=== PATIENT | female | born 1955 | race Caucasian/White ===

== ENCOUNTER → 2020-05-26 15:56 | Outpatient (CLI) | payer OTHER, SELFPAY ==
--- NOTE | 2020-05-26 | DI.MG.S_ITS ---
BILATERAL DIGITAL SCREENING MAMMOGRAM 3D/2D WITH CAD: 05/26/2020 CLINICAL: Routine screening. Family history of breast cancer. Comparison is made to exams dated: 05/09/2017 mammogram - [facility] and 03/07/2019 mammogram - outside location. There are scattered fibroglandular elements in both breasts. Current study was also evaluated with a Computer Aided Detection (CAD) system. There is a biopsy clip in the left breast. No significant masses, calcifications, or other findings are seen in either breast. There has been no significant interval change. IMPRESSION: NEGATIVE There is no mammographic evidence of malignancy. A 1 year screening mammogram is recommended. This exam was interpreted at Station ID: [id number]. NOTE: For mammograms, a report in lay terms will be sent to the patient. Approximately 15% of breast malignancies will not be visualized mammographically. In the management of a palpable breast mass, a negative mammogram must not discourage biopsy of a clinically suspicious lesion. Electronically Signed By: Dane chao/tiago:05/26/2020 16:27:24 letter sent: Normal Exam ACR BI-RADS Category 1: Negative [id number]
== END ==
PROVIDERS: Family Provider Internal Medicine; PCP Physician Assistant; Referring Provider Physician Assistant; Visit Provider Physician Assistant
DX: Z12.31 Encounter for screening mammogram for malignant neoplasm of breast (principal); Z80.3 Family history of malignant neoplasm of breast
CPT/HCPCS: 77063; 77067

== ENCOUNTER → 2021-10-29 14:33 | Outpatient (CLI) | payer MEDICARE, OTHER, SELFPAY ==
--- NOTE | 2021-10-29 | DI.MG.S_ITS ---
BILATERAL DIGITAL SCREENING MAMMOGRAM 3D/2D WITH CAD: 10/29/2021 CLINICAL: Routine screening. Family history of breast cancer. Comparison is made to exams dated: 05/26/2020 mammogram - [facility], 03/07/2019 mammogram - outside [facility], and 05/09/2017 mammogram - [facility]. There are scattered fibroglandular elements in both breasts. Current study was also evaluated with a Computer Aided Detection (CAD) system. There is a possible developing asymmetry with an indistinct margin in the right breast at 6 o'clock anterior depth. No other significant masses, calcifications, or other findings are seen in either breast. IMPRESSION: INCOMPLETE: NEEDS ADDITIONAL IMAGING EVALUATION The possible developing asymmetry in the right breast is indeterminate. Additional views with possible ultrasound are recommended. This exam was interpreted at Station ID: [id number]. NOTE: For mammograms, a report in lay terms will be sent to the patient. Approximately 15% of breast malignancies will not be visualized mammographically. In the management of a palpable breast mass, a negative mammogram must not discourage biopsy of a clinically suspicious lesion. Electronically Signed By: Huseyin Downey M.D., jr/tiago:10/29/2021 15:30:05 letter sent: Additional Imaging Needed ACR BI-RADS Category 0: Incomplete [id number]
== END ==
PROVIDERS: Family Provider Internal Medicine; PCP Physician Assistant; Referring Provider Physician Assistant; Visit Provider Physician Assistant
DX: Z12.31 Encounter for screening mammogram for malignant neoplasm of breast (principal); Z80.3 Family history of malignant neoplasm of breast
CPT/HCPCS: 77063; 77067

== ENCOUNTER → 2021-12-09 09:22 | Outpatient (CLI) | payer MEDICARE, OTHER, SELFPAY ==
--- NOTE | 2021-12-09 | DI.US.S_ITS ---
ULTRASOUND OF RIGHT BREAST AND AXILLA: 12/09/2021 CLINICAL: Patient returns today to evaluate a focal asymmetry in the right breast. Comparison is made to exams dated: 12/09/2021 mammogram, 10/29/2021 mammogram, and 05/26/2020 mammogram - [facility]. Color flow ultrasound of the right breast axilla was performed. Woodward scale images of the real-time examination were reviewed. There is a 0.5 cm x 0.6 cm x 0.4 cm oval mass in the right breast at 9 o'clock middle depth 5 cm from the nipple. This oval mass is hypoechoic with an echogenic boundary and internal echoes. This correlates with mammography findings. Color flow imaging demonstrates that there is no vascularity present. No significant abnormalities were seen sonographically in the right axilla. IMPRESSION: SUSPICIOUS OF MALIGNANCY The 0.5 cm x 0.6 cm x 0.4 cm oval mass in the right breast is suspicious of malignancy. An ultrasound guided biopsy is recommended. Findings and recommendations were discussed with the patient by Dr. Pineda during today's examination. This exam was interpreted at Station ID: [id number]. Electronically Signed By: Chino Clemens M.D. aty/:12/09/2021 10:46:00 letter sent: Biopsy Required Ultrasound BI-RADS: 4 Suspicious for malignancy
--- NOTE | 2021-12-09 | DI.MG.S_ITS ---
UNILATERAL RIGHT DIGITAL DIAGNOSTIC MAMMOGRAM 3D/2D WITH ADDITIONAL VIEWS: 12/09/2021 CLINICAL: Additional evaluation requested from prior study. Comparison is made to exams dated: 10/29/2021 mammogram, 05/26/2020 mammogram - [facility], and 03/07/2019 mammogram - outside location. There are scattered fibroglandular elements in right breast. Redemonstration of previously described 0.6 cm oval equal density focal asymmetry with an obscured margin in the right breast at 8 o'clock anterior depth. This is seen in additional views. No other significant masses or calcifications are seen in the breast. IMPRESSION: INCOMPLETE: NEEDS ADDITIONAL IMAGING EVALUATION The 0.6 cm oval equal density focal asymmetry in the right breast resembles a cyst or a lymph node and is indeterminate. An ultrasound is recommended for further evaluation and is scheduled to immediately follow this examination. Based on the Tyrer Cuzick model (a risk assessment model) the patient's lifetime risk is 4.6% and her 10 year risk is 2.3%. According to the ACR, ACS, and NCCN guidelines, an annual breast MRI exam along with mammogram is recommended if the patient's lifetime risk is 20% or greater. This exam was interpreted at Station ID: [id number]. NOTE: For mammograms, a report in lay terms will be sent to the patient. Approximately 15% of breast malignancies will not be visualized mammographically. In the management of a palpable breast mass, a negative mammogram must not discourage biopsy of a clinically suspicious lesion. Electronically Signed By: Chino Clemens M.D. aty/:12/09/2021 09:51:41 ACR BI-RADS Category 0: Incomplete [id number]
== END ==
PROVIDERS: Family Provider Internal Medicine; PCP Physician Assistant; Referring Provider Physician Assistant; Visit Provider Physician Assistant
DX: R92.8 Other abnormal and inconclusive findings on diagnostic imaging of breast (principal); N63.15 Unspecified lump in the right breast, overlapping quadrants
CPT/HCPCS: 76642; 77065; G0279

== ENCOUNTER → 2021-12-21 14:49 | Outpatient (CLI) | payer MEDICARE, OTHER, SELFPAY ==
--- NOTE | 2021-12-21 | PATH_ITS ---
[facility] Accession Number: [id number] . 01 Material submitted: . breast - RIGHT BREAST MASS 9:00, 5 CMFN . 01 Clinical history: . ABNORMAL DIAG IMAGING RIGHT BREAST . 01 Diagnosis: Right Breast Mass, 9 o'clock, 5 cm From Nipple, Needle Core Biopsy: Lobular eqzcrblx-ec-uwgy (LCIS) in multiple (approximately 5 of 12) tissue fragments. No invasive tumor identified. Please see comment. [facility] [place]/30/2021 0941 Local . 01 Comment: The majority of the lesion has histologic features of classic LCIS. 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 . As part of routine quality improvement specialist, this case was also reviewed by Dr. Monte, who agrees with the interpretation. . Results discussed with Dr. Childs on 12-28-21 at approximately 12:05 p.m. . 01 Electronically signed: . Sherice Nieto MD, Pathologist NPI- [id number] . 01 Gross description: . Received in formalin, labeled with the patient's name and right breast 9 o'clock, and consists of multiple yellow soft tissue fragments admixed with hemorrhagic material ranging from 0.1 cm to 1.2 cm in greatest dimension. The specimen is inked green and submitted entirely in cassettes A1-A3. Specimen was removed on 12-21-21 at approximately 1600, cold ischemic time cannot be calculated. Total fixation time is approximately 28 hours. ([id number]) /[place]a 12/23/2021 0219 Local . 01 Microscopic: . Blocks A1 and A2: p63: Positive in regions of interest. Myosin (SMMS-1): Positive in regions of interest. . The presence of myoepithelial markers p63 and myosin mitigates against an interpretation of invasive carcinoma. . A1 and A2: E-cadherin:Absent in regions of interest, consistent with lobular differentiation. . Deparaffinized sections of formalin-fixed tissue (along with appropriate positive and negative controls) are incubated with the following antibody(s). Using the automated [place] stainer, tissue is incubated with the designated antibody which is then localized by a non-biotin, dual polymer detection system. The controls are reviewed for appropriate reactivity and found to be adequate. Results on the target cell population are indicated below: . Some of the immunohistochemistry stains reported below were developed and their performance characteristics determined by [employer] They have not been cleared or approved by the U.S. Food and Drug Administration, although such approval is not required for analyte-specific reagents of this type. . 01 Pathologist provided ICD-10: N63.10 . 01 CPT . X98398, G04248, A58958, 311631 Specimen Comment: A courtesy copy of this report has been sent to [phone] Performed at: 01 [facility] [address] [place] [address], [place], [place] [id number] MD Frantz Jones MD Phone: [phone]
--- NOTE | 2021-12-21 14:52 | DI.US.S_ITS ---
ULTRASOUND GUIDED BIOPSY RIGHT BREAST USING VACUUM DEVICE WITH MARKING DEVICE INSERTED AND POST DIGITAL MAMMOGRAPHIC IMAGIN12/21/2021 CLINICAL: Right breast mass. PATIENT CONSENT: Risks (minor bleeding, infection, vasovagal reaction and repeat procedure), benefits and alternatives were explained to the patient and written informed consent was obtained. Correlation is made to exams dated: 12/09/2021 ultrasound, 12/09/2021 mammogram, 10/29/2021 mammogram, 05/26/2020 mammogram - [facility], 03/07/2019 mammogram - outside [facility], and 05/09/2017 mammogram - [facility]. An ultrasound guided biopsy using real-time ultrasound was performed for the oval mass located in the right breast at 9 o'clock middle depth. The skin was prepped in the usual manner. Local anesthetic was administered to the access site. A skin nabeel was made in the breast. The abnormality was approached from the lateral aspect. A 13 gauge biopsy needle was placed adjacent to the abnormality under ultrasound guidance. Once the needle was documented to be in the correct location, four specimens were obtained using the Mammotome biopsy system. A Secure Yonis Celero biopsy clip was inserted into the biopsy cavity. A skin closure strip was applied to the access site. Post procedure digital mammographic imaging demonstrates the location device at the targeted area. The specimens were sent to the laboratory for pathological analysis. IMPRESSION: ULTRASOUND GUIDED BIOPSY HIGH RISK BENIGN Ultrasound guided biopsy of the mass in the right breast at 9 o'clock middle depth was successful. 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 Pathology results are concordant with imaging findings. A surgical/oncologic consultation is recommended. Results and recommendations will be communicated to the ordering provider's office. This exam was interpreted at Station ID: [id number]. Lexy Hernandez M.D. [facility],krg/:12/30/2021 15:58:47
--- NOTE | 2021-12-21 14:54 | DI.MG.S_ITS ---
UNILATERAL RIGHT DIGITAL DIAGNOSTIC MAMMOGRAM 3D/2D POST-EXCISIONAL BIOPSY: 12/21/2021 CLINICAL: Post clip. Comparison is made to exams dated: 12/09/2021 mammogram, 10/29/2021 mammogram, and 05/26/2020 mammogram - [facility]. There are scattered fibroglandular elements in right breast. There is a marker clip in the appropriate position in the right breast at 9 o'clock anterior depth. This marker clip placement is at the biopsy site. IMPRESSION: POST PROCEDURE MAMMOGRAM FOR MARKER PLACEMENT There was a successful marker clip placement in the right breast anterior depth. Based on the Tyrer Cuzick model (a risk assessment model) the patient's lifetime risk is 4.6% and her 10 year risk is 2.3%. According to the ACR, ACS, and NCCN guidelines, an annual breast MRI exam along with mammogram is recommended if the patient's lifetime risk is 20% or greater. This exam was interpreted at Station ID: [id number]. NOTE: For mammograms, a report in lay terms will be sent to the patient. Approximately 15% of breast malignancies will not be visualized mammographically. In the management of a palpable breast mass, a negative mammogram must not discourage biopsy of a clinically suspicious lesion. Electronically Signed By: Lexy zamora/tiago:12/21/2021 16:30:59 ACR BI-RADS Category Post-procedure mammogram for marker placement
== END ==
PROVIDERS: Family Provider Internal Medicine; PCP Physician Assistant; Referring Provider Physician Assistant; Visit Provider Physician Assistant
DX: D05.01 Lobular carcinoma in situ of right breast (principal)
CPT/HCPCS: 19083; 77065

== ENCOUNTER 2024-07-01 12:42 | Emergency (ER) | payer MEDICARE, OTHER, SELFPAY ==
[2024-07-01] VITALS (37 sets, daily range): BP systolic 85–214; BP diastolic 50–99; PULSE 100–132; RESP 12–71; TEMP 37.7; O2SAT 88–97; BMI 27.4
[2024-07-01] MEDS: SODIUM CHLORIDE 0.9% 1,000 ML 1000 ML IV ×2 (13:49→21:40)
[2024-07-01] MEDS: ONDANSETRON 4 MG/2 ML INJ IV (14:03)
[2024-07-01 14:10] LABS: Hematocrit 39.7 % (36-46); Hemoglobin 13.1 g/dL (12.0-16.0); Mean Corpuscular HGB Conc 32.9 % (30-36); Mean Corpuscular Hemoglobin 29.5 PG (26-34); Mean Corpuscular Volume 89.7 fL (80-100); Platelet Count 224 X10^3/uL (150-400); Red Blood Cell Count 4.43 X10^6/uL (4.0-5.2); Red Cell Distribution Width 14.9 % (11.6-14.8)
[2024-07-01 14:13] LABS: Alanine Aminotransferase 72 IU/L (<35); Albumin 3.8 g/dL (3.5-5.0); Albumin Globulin Ratio 1.1 (1.0-2.8); Alkaline Phosphatase 197 U/L (38-126); Aspartate Aminotransferase 80 IU/L (14-36); BUN Creatinine Ratio 13.6 (6-22); Bilirubin Total 1.8 mg/dL (0.2-1.3); Blood Urea Nitrogen 58 mg/dL (7-17); Calcium 8.8 mg/dL (8.4-10.2); Carbon Dioxide 21 mmol/L (22-32); Chloride 97 mmol/L (98-107); Estimated Glomerular Filt Rate 11 mL/min (>60); Globulin 3.5 g/dL (1.7-4.1); Glucose 107 mg/dL (80-110); HEMOLYSIS < 15 (0-50); Potassium 4.1 mmol/L (3.4-5.1); Sodium 134 mmol/L (137-145); Total Protein 7.3 g/dL (6.3-8.2)
--- NOTE | 2024-07-01 14:16 | ED.CALLS ---
Critical lab called WBC 30.4
[2024-07-01 14:17] LABS: Add Manual Diff / Slide Review YES; White Blood Cell Count 30.4 X10^3/uL (4.5-11.0)
[2024-07-01 14:23] LABS: Anisocytosis 1+; Neutrophils Absolute Manual 28880 /uL (3000-5900); Total Cells Counted 100
[2024-07-01 14:46] LABS: Creatine Kinase 104 U/L (30-135); Lactate (Lactic Acid) 3.2 mmol/L (0.7-2.1)
--- NOTE | 2024-07-01 15:06 | EKG_ITS ---
[address] [address] Test Date: 2024-07-01 Pat Name: Krista Arce Department: Room: Gender: Female Measurement Operator: KOKI : 1955 Requested By: Order Number: [id number] Reading MD: Bismark Baer MD Measurements Intervals [place] Rate: 103 P: 16 OH: 134 QRS: 17 QRSD: 128 T: -16 QT: 372 QTc: 487 Interpretive Statements Sinus tachycardia Right bundle branch block T wave abnormality, consider inferior ischemia NO PRIOR TRACING Electronically Signed On 07-01-2024 16:57:23 PST by Bismark Baer MD
--- NOTE | 2024-07-01 15:08 | PC.NURSE ---
Dr Kelley notified of trop of 0.190 and WBC of 30. No new orders.
--- NOTE | 2024-07-01 15:28 | DI.CT.S_ITS ---
PROCEDURE: CT HEAD/BRAIN WO CON INDICATIONS: elevated wbc, new renal failure, new elevated trop TECHNIQUE: Noncontrast 4.5 mm thick angled axial sections acquired from the foramen magnum to the vertex, with coronal and sagittal reformats. For radiation dose reduction, the following was used: automated exposure control, adjustment of mA and/or kV according to patient size. COMPARISON: None. FINDINGS: Image quality: Diagnostic. CSF spaces: Basal cisterns are patent. No extra-axial fluid collections. The ventricles are symmetric in size and shape. Brain: No intracranial bleeds or masses. There is cerebral volume loss for age, with resultant ventricular and sulcal prominence. There are periventricular and deep white matter chronic small vessel ischemic changes. There is intracranial internal carotid artery atherosclerosis. Skull and face: Calvarium and visualized facial bones appear intact, without suspicious lesions. Sinuses: Visualized sinuses and mastoids are clear. IMPRESSION: 1. No acute intracranial process. 2. Mild atrophy and chronic microvascular ischemic changes. Dictated by: Meenu Gordon M.D. on 07/01/2024 at 15:54 Approved by: Meenu Gordon M.D. on 07/01/2024 at 15:54
--- NOTE | 2024-07-01 15:28 | DI.CT.S_ITS ---
PROCEDURE: CT CHEST ABD PEL WO CON INDICATIONS: elevated wbc, new renal failure, new elevated trop TECHNIQUE: After the administration of oral contrast, 5 mm thick sections acquired from the lung apices to the symphysis pubis. 5 mm thick coronal and sagittal reformats acquired, with additional 7 mm coronal MIP reformats through the lungs. For radiation dose reduction, the following was used: automated exposure control, adjustment of mA and/or kV according to patient size. COMPARISON: None. FINDINGS: Image quality: Diagnostic. CHEST: Lower Neck: No enlarged lymph nodes. Thyroid: No thyroid nodules which require sonographic follow up, per consensus guidelines. Axillae: No enlarged lymph nodes. Chest Wall: Unremarkable. Bones: Unremarkable. Lungs and Pleura: Streaky opacities are present bilaterally most notable in the left base without gross consolidation. Heart: Heart size is normal. No pericardial effusion. Thoracic Vessels: The aorta and pulmonary arteries demonstrate normal size. Mediastinum and Davida: No enlarged lymph nodes. Calcified nodes are present. Esophagus: No wall thickening. Mild hiatal hernia. ABDOMEN: Liver: No solid mass. Steatosis. Gallbladder: No radiopaque gallstones or wall thickening. Biliary ducts: No biliary dilation. Pancreas: No ductal dilation. Spleen: Size is within normal limits. Adrenal Glands: No adrenal nodules. Kidneys and Ureters: Mild left hydronephrosis and proximal most hydroureter. There is a 6 mm proximal ureteral calcification, Hounsfield units 953. Stomach and Bowel: Normal colonic caliber, without significant wall thickening. Minimal colonic diverticula are present. Peritoneum: No abnormal intraperitoneal fluid. No free air. Ventral Wall: No hernia. Abdominal Nodes: No retroperitoneal or mesenteric adenopathy by size criteria. Vessels: Aorta and inferior vena cava are normal in size. PELVIS: Pelvic Organs: Uterus is lobulated in mildly prominent for age. Bladder: Unremarkable. Pelvic Nodes: No enlarged lymph nodes. Miscellaneous: No inguinal hernias are seen. Bones: No aggressive osseous abnormality. IMPRESSION: Left hydronephrosis and proximal hydroureter secondary to 6 mm ureteral proximal stone. Diverticulosis. Mild lobulated appearance of the uterus. While this could represent fibroids, other etiologies cannot be excluded. Ultrasound is recommended on a nonemergent basis for further evaluation. Dictated by: Meenu Gordon M.D. on 07/01/2024 at 15:54 Approved by: Meenu Gordon M.D. on 07/01/2024 at 15:57
[2024-07-01 15:30] LABS: Procalcitonin 126 ng/mL (<0.5)
--- NOTE | 2024-07-01 15:32 | ED_ITS ---
HPI - Nausea/Vomiting/Diarrhea <Kleber Kelley MD - Last Filed: 07/02/24 21:48> General Chief complaint: Nausea/Vomiting/Diarrhea Stated complaint: V/D, dizzy, flu like symptoms, sent by [facility] Time Seen by Provider: 07/01/24 14:20 Source: patient and family Mode of arrival: Wheelchair History of Present Illness HPI Narrative: 68-year-old female with history of prior small-bowel obstruction, complains of nontraumatic left flank pain for the last couple of days, also loose stools, nausea without emesis but decreased oral intake. Denies painful or frequent urination. History of sarcoma left buttock. No fevers or chills. No painful urination. No history of kidney stones recalled. She denies chest pain, shortness of breath, cough. Related Data Home Medications Medication Instructions Recorded Confirmed Ranitidine Hydrochloride ##0 03/24/12 07/01/24 (RANITIDINE) diazepam 5 mg tablet 2.5 - 10 mg PO Q4H PRN muscle spasm 07/01/24 07/01/24 ezetimibe 10 mg tablet mg PO DAILY 07/01/24 07/01/24 losartan 100 mg tablet 100 mg PO DAILY 07/01/24 07/01/24 Previous Rx's Medication Instructions Recorded albuterol sulfate 90 mcg/actuation 0 INH Q4-6H #1 unit 03/24/12 aerosol inhaler (Proventil HFA) albuterol sulfate 1.25 mg/3 mL 1.25 mg (3 mL) inhalation QID PRN 05/13/18 solution for nebulization bronchospasm #90 mL Allergies Allergy/AdvReac Type Severity Reaction Status Date / Time No Known Drug Allergies Allergy Verified 07/01/24 15:21 Patient History <Kleber Kelley MD - Last Filed: 07/02/24 21:48> Social History Smoking Status: Former smoker Smoking Status: Former smoker Exam <Kleber Kelley MD - Last Filed: 07/02/24 21:48> Narrative Exam Narrative: GENERAL: Well-developed patient, in mild distress. HEAD: Atraumatic. Normocephalic. EYES: Pupils equal round and reactive. Extraocular motions intact. No scleral icterus. No injection or drainage. ENT: Nose without bleeding, purulent drainage. Throat without erythema, tonsillar hypertrophy or exudate. Airway patent. NECK: Trachea midline. Non tender CARDIOVASCULAR: Regular rate and rhythm without murmurs, gallops, or rubs. RESPIRATORY: Clear to auscultation. Breath sounds equal bilaterally. No wheezes, rales, or rhonchi. GASTROINTESTINAL: Abdomen soft, non-tender, nondistended. EXTREMITIES: No edema or joint tenderness. BACK: Nontender without deformity or crepitance. No flank tenderness. NEURO: AOx3. Motor functions grossly nonfocal SKIN: No rash or erythema of visible areas Initial Vital Signs Initial Vital Signs: Vital Signs Temperature 99.8 F H 07/01/24 13:23 Pulse Rate 101 H 07/01/24 13:23 Respiratory Rate 18 07/01/24 13:23 Blood Pressure 116/62 07/01/24 13:23 Pulse Oximetry 95 07/01/24 13:23 Oxygen Delivery Method Room Air 07/01/24 13:23 <Lana Hernandes, DO - Last Filed: 07/02/24 06:14> Initial Vital Signs Initial Vital Signs: Vital Signs Temperature 99.8 F H 07/01/24 13:23 Pulse Rate 101 H 07/01/24 13:23 Respiratory Rate 18 07/01/24 13:23 Blood Pressure 116/62 07/01/24 13:23 Pulse Oximetry 95 07/01/24 13:23 Oxygen Delivery Method Room Air 07/01/24 13:23 Procedures <Lana Hernandes, DO - Last Filed: 07/02/24 06:14> Central Line Placement Right IJ: Patient Placed on Monitor/Pulse Ox: Yes MD Prep: mask, gown and gloves Central Line Prep: Chlorhexidine scrub and sterile drapes applied Central Line Lumen Inserted: triple Post Procedure: good blood return, all ports aspirated, flushed, capped, sterile dressing applied and line stabilization device Post Procedure X-Ray: tip of catheter in good position and no pneumothorax seen Patient Tolerated Procedure: Well and No complications Intubation sedative: Ketamine Mg Given: 150 paralytic: Rocuronium Mg Given: 46 Assist Device Used: other (glide scope) ET Tube Size: 7.5 Tube Secured Depth (cm): 23 Tube Secured Location: lips Tube Placement Confirmation: Visualized tube passing through cords, Equal breath sounds bilaterally, No breath sounds over epigastrium, Confirmation by capnometry and Chest Xray Patient Tolerated Procedure: Well Course <Kleber Kelley MD - Last Filed: 07/02/24 21:48> Orders Ordered: Discontinued Medications Albuterol (Albuterol 2.5 Mg/3 Ml Neb (Adult)) 2.5 mg INH NOW ONE Stop: 07/01/24 20:34 Last Admin: 07/01/24 21:47 Dose: 2.5 mg Documented By: ERIK Chlorhexidine Gluconate (Chlorhexidine Gluconate 15 Ml Cup) 15 ml PO Q6HR PJ Furosemide (Furosemide 40 Mg/4 Ml Vial) 40 mg IV NOW ONE Stop: 07/01/24 22:05 Last Admin: 07/01/24 22:25 Dose: 40 mg Documented By: LORELEI Heparin Sodium (Porcine) (Heparin 5,000 Unit/Ml Vial) 4,500 unit 60 unit/kg (4500 unit) IV NOW ONE Stop: 07/01/24 17:25 Last Admin: 07/01/24 17:41 Dose: Not Given Documented By: Heparin Sodium (Porcine) (Heparin 5,000 Unit/Ml Vial) 6,000 unit 80 unit/kg (6000 unit) IV NOW ONE Stop: 07/01/24 20:07 Last Admin: 07/01/24 20:23 Dose: 6,000 unit Documented By: Sodium Chloride (Normal Saline 0.9%) 1,000 mls @ 1,000 mls/hr IV BOLUS ONE Stop: 07/01/24 14:45 Last Infusion: 07/01/24 14:50 Dose: Infused Documented By: Admin: 07/01/24 13:49 Dose: 1,000 mls/hr Documented By: Sodium Chloride (Normal Saline 0.9%) 1,000 mls @ 1,000 mls/hr IV BOLUS ONE Stop: 07/01/24 18:14 Last Infusion: 07/02/24 02:15 Dose: 0 mls/hr Documented By: Infusion: 07/02/24 01:00 Dose: 250 mls/hr Documented By: Infusion: 07/01/24 21:40 Dose: 0 mls/hr Documented By: Admin: 07/01/24 21:40 Dose: 1,000 mls/hr Documented By: Ceftriaxone Sodium 1,000 mg/ (Sodium Chloride) 100 mls @ 200 mls/hr IV NOW ONE Stop: 07/01/24 17:16 Last Infusion: 07/01/24 18:33 Dose: Infused Documented By: Admin: 07/01/24 17:34 Dose: 200 mls/hr Documented By: Heparin Sodium/Dextrose (Heparin Drip) 25,000 unit in 500 mls @ 18.507 mls/hr IV CONT PJ; Protocol Last Titration: 07/02/24 00:00 Dose: Infused Documented By: JODI Co-signed By: LORELEI Titration: 07/01/24 22:59 Dose: 0 units/kg/hr, 0 mls/hr Documented By: LORELEI Co-signed By: JODI Admin: 07/01/24 20:25 Dose: 12 units/kg/hr, 18.507 mls/hr Documented By: Co-signed By: LORELEI Admin: 07/01/24 17:41 Dose: Not Given Documented By: Heparin Sodium/Dextrose (Heparin Drip) 25,000 unit in 500 mls @ 27.76 mls/hr IV CONT PJ; Protocol Last Admin: 07/01/24 21:46 Dose: Not Given Documented By: LORELEI Piperacillin Sod/Tazobactam (Sod 4.5 gm/ Sodium Chloride) 100 mls @ 200 mls/hr IV NOW ONE Stop: 07/01/24 20:07 Last Infusion: 07/01/24 22:10 Dose: Infused Documented By: Admin: 07/01/24 20:24 Dose: 200 mls/hr Documented By: Sodium Chloride (Normal Saline 0.9%) 1,000 mls @ 1,000 mls/hr IV BOLUS ONE Stop: 07/01/24 21:05 Last Admin: 07/01/24 23:57 Dose: Not Given Documented By: LORELEI NOREPINEPHRINE BITARTRATE/D5W (Levophed) 4 mg in 250 mls @ 28.917 mls/hr IV TITRATE PJ; Protocol Last Titration: 07/02/24 02:15 Dose: 0 mcg/kg/min, 0 mls/hr Documented By: Titration: 07/02/24 01:35 Dose: 0.15 mcg/kg/min, 43.375 mls/hr Documented By: Titration: 07/02/24 01:11 Dose: 0.1 mcg/kg/min, 28.917 mls/hr Documented By: Titration: 07/01/24 23:50 Dose: 0 mcg/kg/min, 0 mls/hr Documented By: Titration: 07/01/24 23:35 Dose: 0.1 mcg/kg/min, 28.917 mls/hr Documented By: Titration: 07/01/24 23:07 Dose: 0.15 mcg/kg/min, 43.375 mls/hr Documented By: Admin: 07/01/24 22:57 Dose: 0.1 mcg/kg/min, 28.917 mls/hr Documented By: LORELEI Sodium Chloride (Normal Saline 0.9%) 2,313.33 mls @ 771.11 mls/hr 30 ml/kg infuse over 3 hr (2313.33 ml) IV NOW ONE Stop: 07/02/24 02:11 Last Infusion: 07/02/24 02:10 Dose: Infused Documented By: Admin: 07/01/24 23:51 Dose: 771.11 mls/hr Documented By: LORELEI Propofol (Diprivan) 1,000 mg in 100 mls @ 2.313 mls/hr IV TITRATE PJ; Protocol Last Titration: 07/02/24 02:15 Dose: 0 mcg/kg/min, 0 mls/hr Documented By: Titration: 07/02/24 01:11 Dose: 25 mcg/kg/min, 11.567 mls/hr Documented By: Titration: 07/02/24 00:35 Dose: 11.5 mcg/kg/min, 5.321 mls/hr Documented By: Admin: 07/01/24 23:51 Dose: 5 mcg/kg/min, 2.313 mls/hr Documented By: LORELEI Fentanyl 1,000 mcg/ Dextrose 250 mls @ 13.494 mls/hr IV TITRATE PJ; Protocol Last Admin: 07/02/24 02:35 Dose: Not Given Documented By: LORELEI Piperacillin Sod/Tazobactam (Sod 3.375 gm/ Sodium Chloride) 100 mls @ 25 mls/hr IV Q8H PJ Last Infusion: 07/02/24 02:15 Dose: 0 mls/hr Documented By: Admin: 07/02/24 01:54 Dose: 25 mls/hr Documented By: LORELEI Piperacillin Sod/Tazobactam (Sod 3.375 gm/ Sodium Chloride) 100 mls @ 25 mls/hr IV Q12H PJ Iopamidol (Iopamidol 30 Ml Vial) 5 ml INTRA-CHASE NOW ONE Stop: 07/02/24 00:56 Last Admin: 07/02/24 00:56 Dose: 5 ml Documented By: GAMAL Ketamine HCl (Ketamine 500 Mg/5 Ml Inj) 150 mg IV NOW ONE Stop: 07/01/24 22:43 Last Admin: 07/01/24 22:57 Dose: 150 mg Documented By: LORELEI Ondansetron HCl (Ondansetron 4 Mg/2 Ml Inj) 4 mg IV NOW ONE Stop: 07/01/24 13:47 Last Admin: 07/01/24 14:03 Dose: 4 mg Documented By: Rocuronium Elfrida (Rocuronium 50 Mg/5 Ml Inj) 46 mg 0.6 mg/kg (46 mg) IV NOW ONE Stop: 07/01/24 22:43 Last Admin: 07/01/24 22:58 Dose: 46 mg Documented By: LORELEI Vital Signs Vital signs: Vital Signs - 8 hr 07/01/24 22:18 07/01/24 22:18 07/01/24 22:25 Pulse Rate 119 H Respiratory Rate 64 H Blood Pressure 92/60 92/60 Pulse Oximetry 94 Fraction of Inspired Oxygen 07/01/24 22:30 07/01/24 22:30 07/01/24 22:36 Pulse Rate 119 H 118 H Respiratory Rate 33 H 34 H Blood Pressure 89/61 L Pulse Oximetry 92 93 Fraction of Inspired Oxygen 07/01/24 22:36 07/01/24 22:48 07/01/24 22:48 Pulse Rate 116 H Respiratory Rate 30 H Blood Pressure 85/50 L 86/53 L Pulse Oximetry 92 Fraction of Inspired Oxygen 07/01/24 22:53 07/01/24 22:53 07/01/24 22:53 Pulse Rate 112 H 116 H Respiratory Rate 16 29 H Blood Pressure 88/50 L Pulse Oximetry 92 Fraction of Inspired Oxygen 07/01/24 23:00 07/01/24 23:00 07/01/24 23:30 Pulse Rate 100 H 125 H Respiratory Rate 16 16 Blood Pressure 93/57 L Pulse Oximetry 97 95 Fraction of Inspired Oxygen 07/01/24 23:30 07/01/24 23:40 07/01/24 23:40 Pulse Rate 130 H Respiratory Rate 16 Blood Pressure 198/95 H 214/98 H Pulse Oximetry 95 Fraction of Inspired Oxygen 07/01/24 23:46 07/01/24 23:50 07/01/24 23:50 Pulse Rate 132 H Respiratory Rate 16 Blood Pressure 196/82 H Pulse Oximetry 95 Fraction of Inspired Oxygen 60 07/02/24 00:00 07/02/24 00:00 07/02/24 00:10 Pulse Rate 129 H 129 H Respiratory Rate 16 16 Blood Pressure 188/85 H Pulse Oximetry 95 95 Fraction of Inspired Oxygen 07/02/24 00:10 07/02/24 00:20 07/02/24 00:20 Pulse Rate 127 H Respiratory Rate 16 Blood Pressure 177/78 H 166/74 H Pulse Oximetry 94 Fraction of Inspired Oxygen 07/02/24 00:30 07/02/24 00:30 07/02/24 01:09 Pulse Rate 122 H 118 H Respiratory Rate 16 Blood Pressure 124/61 Pulse Oximetry 94 98 Fraction of Inspired Oxygen 07/02/24 01:13 07/02/24 01:13 07/02/24 01:20 Pulse Rate 118 H Respiratory Rate 23 Blood Pressure 123/57 L 105/51 L Pulse Oximetry 92 Fraction of Inspired Oxygen 07/02/24 01:20 07/02/24 01:27 07/02/24 01:27 Pulse Rate 116 H 112 H Respiratory Rate 23 23 Blood Pressure 105/55 L Pulse Oximetry 91 91 Fraction of Inspired Oxygen 07/02/24 01:30 07/02/24 01:30 07/02/24 01:40 Pulse Rate 112 H 111 H Respiratory Rate 22 23 Blood Pressure 98/51 L Pulse Oximetry 91 91 Fraction of Inspired Oxygen 07/02/24 01:40 07/02/24 01:45 07/02/24 01:45 Pulse Rate 111 H Respiratory Rate 22 Blood Pressure 101/52 L 104/54 L Pulse Oximetry 91 Fraction of Inspired Oxygen 07/02/24 01:50 07/02/24 01:50 Pulse Rate 110 H Respiratory Rate 23 Blood Pressure 106/51 L Pulse Oximetry 92 Fraction of Inspired Oxygen <Lana Hernandes, - Last Filed: 07/02/24 06:14> Orders Ordered: Discontinued Medications Albuterol (Albuterol 2.5 Mg/3 Ml Neb (Adult)) 2.5 mg INH NOW ONE Stop: 07/01/24 20:34 Last Admin: 07/01/24 21:47 Dose: 2.5 mg Documented By: ERIK Chlorhexidine Gluconate (Chlorhexidine Gluconate 15 Ml Cup) 15 ml PO Q6HR PJ Furosemide (Furosemide 40 Mg/4 Ml Vial) 40 mg IV NOW ONE Stop: 07/01/24 22:05 Last Admin: 07/01/24 22:25 Dose: 40 mg Documented By: LORELEI Heparin Sodium (Porcine) (Heparin 5,000 Unit/Ml Vial) 4,500 unit 60 unit/kg (4500 unit) IV NOW ONE Stop: 07/01/24 17:25 Last Admin: 07/01/24 17:41 Dose: Not Given Documented By: Heparin Sodium (Porcine) (Heparin 5,000 Unit/Ml Vial) 6,000 unit 80 unit/kg (6000 unit) IV NOW ONE Stop: 07/01/24 20:07 Last Admin: 07/01/24 20:23 Dose: 6,000 unit Documented By: Sodium Chloride (Normal Saline 0.9%) 1,000 mls @ 1,000 mls/hr IV BOLUS ONE Stop: 07/01/24 14:45 Last Infusion: 07/01/24 14:50 Dose: Infused Documented By: Admin: 07/01/24 13:49 Dose: 1,000 mls/hr Documented By: Sodium Chloride (Normal Saline 0.9%) 1,000 mls @ 1,000 mls/hr IV BOLUS ONE Stop: 07/01/24 18:14 Last Infusion: 07/02/24 02:15 Dose: 0 mls/hr Documented By: Infusion: 07/02/24 01:00 Dose: 250 mls/hr Documented By: Infusion: 07/01/24 21:40 Dose: 0 mls/hr Documented By: Admin: 07/01/24 21:40 Dose: 1,000 mls/hr Documented By: Ceftriaxone Sodium 1,000 mg/ (Sodium Chloride) 100 mls @ 200 mls/hr IV NOW ONE Stop: 07/01/24 17:16 Last Infusion: 07/01/24 18:33 Dose: Infused Documented By: Admin: 07/01/24 17:34 Dose: 200 mls/hr Documented By: Heparin Sodium/Dextrose (Heparin Drip) 25,000 unit in 500 mls @ 18.507 mls/hr IV CONT PJ; Protocol Last Titration: 07/02/24 00:00 Dose: Infused Documented By: JODI Co-signed By: LORELEI Titration: 07/01/24 22:59 Dose: 0 units/kg/hr, 0 mls/hr Documented By: LORELEI Co-signed By: JODI Admin: 07/01/24 20:25 Dose: 12 units/kg/hr, 18.507 mls/hr Documented By: Co-signed By: LORELEI Admin: 07/01/24 17:41 Dose: Not Given Documented By: Heparin Sodium/Dextrose (Heparin Drip) 25,000 unit in 500 mls @ 27.76 mls/hr IV CONT PJ; Protocol Last Admin: 07/01/24 21:46 Dose: Not Given Documented By: LORELEI Piperacillin Sod/Tazobactam (Sod 4.5 gm/ Sodium Chloride) 100 mls @ 200 mls/hr IV NOW ONE Stop: 07/01/24 20:07 Last Infusion: 07/01/24 22:10 Dose: Infused Documented By: Admin: 07/01/24 20:24 Dose: 200 mls/hr Documented By: Sodium Chloride (Normal Saline 0.9%) 1,000 mls @ 1,000 mls/hr IV BOLUS ONE Stop: 07/01/24 21:05 Last Admin: 07/01/24 23:57 Dose: Not Given Documented By: LORELEI NOREPINEPHRINE BITARTRATE/D5W (Levophed) 4 mg in 250 mls @ 28.917 mls/hr IV TITRATE PJ; Protocol Last Titration: 07/02/24 02:15 Dose: 0 mcg/kg/min, 0 mls/hr Documented By: Titration: 07/02/24 01:35 Dose: 0.15 mcg/kg/min, 43.375 mls/hr Documented By: Titration: 07/02/24 01:11 Dose: 0.1 mcg/kg/min, 28.917 mls/hr Documented By: Titration: 07/01/24 23:50 Dose: 0 mcg/kg/min, 0 mls/hr Documented By: Titration: 07/01/24 23:35 Dose: 0.1 mcg/kg/min, 28.917 mls/hr Documented By: Titration: 07/01/24 23:07 Dose: 0.15 mcg/kg/min, 43.375 mls/hr Documented By: Admin: 07/01/24 22:57 Dose: 0.1 mcg/kg/min, 28.917 mls/hr Documented By: LORELEI Sodium Chloride (Normal Saline 0.9%) 2,313.33 mls @ 771.11 mls/hr 30 ml/kg infuse over 3 hr (2313.33 ml) IV NOW ONE Stop: 07/02/24 02:11 Last Infusion: 07/02/24 02:10 Dose: Infused Documented By: Admin: 07/01/24 23:51 Dose: 771.11 mls/hr Documented By: LORELEI Propofol (Diprivan) 1,000 mg in 100 mls @ 2.313 mls/hr IV TITRATE PJ; Protocol Last Titration: 07/02/24 02:15 Dose: 0 mcg/kg/min, 0 mls/hr Documented By: Titration: 07/02/24 01:11 Dose: 25 mcg/kg/min, 11.567 mls/hr Documented By: Titration: 07/02/24 00:35 Dose: 11.5 mcg/kg/min, 5.321 mls/hr Documented By: Admin: 07/01/24 23:51 Dose: 5 mcg/kg/min, 2.313 mls/hr Documented By: LORELEI Fentanyl 1,000 mcg/ Dextrose 250 mls @ 13.494 mls/hr IV TITRATE PJ; Protocol Last Admin: 07/02/24 02:35 Dose: Not Given Documented By: LROELEI Piperacillin Sod/Tazobactam (Sod 3.375 gm/ Sodium Chloride) 100 mls @ 25 mls/hr IV Q8H PJ Last Infusion: 07/02/24 02:15 Dose: 0 mls/hr Documented By: Admin: 07/02/24 01:54 Dose: 25 mls/hr Documented By: LORELEI Piperacillin Sod/Tazobactam (Sod 3.375 gm/ Sodium Chloride) 100 mls @ 25 mls/hr IV Q12H PJ Iopamidol (Iopamidol 30 Ml Vial) 5 ml INTRA-CHASE NOW ONE Stop: 07/02/24 00:56 Last Admin: 07/02/24 00:56 Dose: 5 ml Documented By: GAMAL Ketamine HCl (Ketamine 500 Mg/5 Ml Inj) 150 mg IV NOW ONE Stop: 07/01/24 22:43 Last Admin: 07/01/24 22:57 Dose: 150 mg Documented By: LORELEI Ondansetron HCl (Ondansetron 4 Mg/2 Ml Inj) 4 mg IV NOW ONE Stop: 07/01/24 13:47 Last Admin: 07/01/24 14:03 Dose: 4 mg Documented By: Rocuronium Elfrida (Rocuronium 50 Mg/5 Ml Inj) 46 mg 0.6 mg/kg (46 mg) IV NOW ONE Stop: 07/01/24 22:43 Last Admin: 07/01/24 22:58 Dose: 46 mg Documented By: LORELEI Vital Signs Vital signs: Vital Signs - 8 hr 07/01/24 22:18 07/01/24 22:18 07/01/24 22:25 Pulse Rate 119 H Respiratory Rate 64 H Blood Pressure 92/60 92/60 Pulse Oximetry 94 Fraction of Inspired Oxygen 07/01/24 22:30 07/01/24 22:30 07/01/24 22:36 Pulse Rate 119 H 118 H Respiratory Rate 33 H 34 H Blood Pressure 89/61 L Pulse Oximetry 92 93 Fraction of Inspired Oxygen 07/01/24 22:36 07/01/24 22:48 07/01/24 22:48 Pulse Rate 116 H Respiratory Rate 30 H Blood Pressure 85/50 L 86/53 L Pulse Oximetry 92 Fraction of Inspired Oxygen 07/01/24 22:53 07/01/24 22:53 07/01/24 22:53 Pulse Rate 112 H 116 H Respiratory Rate 16 29 H Blood Pressure 88/50 L Pulse Oximetry 92 Fraction of Inspired Oxygen 07/01/24 23:00 07/01/24 23:00 07/01/24 23:30 Pulse Rate 100 H 125 H Respiratory Rate 16 16 Blood Pressure 93/57 L Pulse Oximetry 97 95 Fraction of Inspired Oxygen 07/01/24 23:30 07/01/24 23:40 07/01/24 23:40 Pulse Rate 130 H Respiratory Rate 16 Blood Pressure 198/95 H 214/98 H Pulse Oximetry 95 Fraction of Inspired Oxygen 07/01/24 23:46 07/01/24 23:50 07/01/24 23:50 Pulse Rate 132 H Respiratory Rate 16 Blood Pressure 196/82 H Pulse Oximetry 95 Fraction of Inspired Oxygen 60 07/02/24 00:00 07/02/24 00:00 07/02/24 00:10 Pulse Rate 129 H 129 H Respiratory Rate 16 16 Blood Pressure 188/85 H Pulse Oximetry 95 95 Fraction of Inspired Oxygen 07/02/24 00:10 07/02/24 00:20 07/02/24 00:20 Pulse Rate 127 H Respiratory Rate 16 Blood Pressure 177/78 H 166/74 H Pulse Oximetry 94 Fraction of Inspired Oxygen 07/02/24 00:30 07/02/24 00:30 07/02/24 01:09 Pulse Rate 122 H 118 H Respiratory Rate 16 Blood Pressure 124/61 Pulse Oximetry 94 98 Fraction of Inspired Oxygen 07/02/24 01:13 07/02/24 01:13 07/02/24 01:20 Pulse Rate 118 H Respiratory Rate 23 Blood Pressure 123/57 L 105/51 L Pulse Oximetry 92 Fraction of Inspired Oxygen 07/02/24 01:20 07/02/24 01:27 07/02/24 01:27 Pulse Rate 116 H 112 H Respiratory Rate 23 23 Blood Pressure 105/55 L Pulse Oximetry 91 91 Fraction of Inspired Oxygen 07/02/24 01:30 07/02/24 01:30 07/02/24 01:40 Pulse Rate 112 H 111 H Respiratory Rate 22 23 Blood Pressure 98/51 L Pulse Oximetry 91 91 Fraction of Inspired Oxygen 07/02/24 01:40 07/02/24 01:45 07/02/24 01:45 Pulse Rate 111 H Respiratory Rate 22 Blood Pressure 101/52 L 104/54 L Pulse Oximetry 91 Fraction of Inspired Oxygen 07/02/24 01:50 07/02/24 01:50 Pulse Rate 110 H Respiratory Rate 23 Blood Pressure 106/51 L Pulse Oximetry 92 Fraction of Inspired Oxygen MDM - Nausea/Vomiting/Diarrhea <Kleber Kelley MD - Last Filed: 07/02/24 21:48> Lab Data Attestation: I reviewed the patient's lab results. Lab results narrative: White blood cell count 84290, hemoglobin 13.1, platelets 760630. BUN 58 with creatinine 4.28. Glucose 107. Sodium 134, potassium 4.1, chloride 97, serum CO2 21. Troponin 0.190 elevated. CPK 3.2 elevated. Urinalysis pending. 07/01/24 23:40 07/01/24 23:40 Labs: Lab Results 07/01/24 07/01/24 07/01/24 Range/Units 13:15 13:40 13:46 WBC 30.4 H* (4.5-11.0) X10^3/uL RBC 4.43 (4.0-5.2) X10^6/uL Hgb 13.1 (12.0-16.0) g/dL Hct 39.7 (36-46) % MCV 89.7 (80-100) fL MCH 29.5 (26-34) PG MCHC 32.9 (30-36) % RDW 14.9 H (11.6-14.8) % Plt Count 224 (150-400) X10^3/uL Neut % (Auto) Not Reportable Lymph % (Auto) Not Reportable [place] % (Auto) Not Reportable Eos % (Auto) Not Reportable Baso % (Auto) Not Reportable Lymph # (Auto) Not Reportable [place] # (Auto) Not Reportable Baso # (Auto) Not Reportable Total Counted 100 Seg Neutrophils % 63.0 (38-70) % Band Neutrophils % 32.0 H (3-7) % Lymphocytes % (Manual) 2.0 L (25-45) % Monocytes % (Manual) 1.0 L (2-11) % Metamyelocytes % 2.0 H (-0) % Neutrophils # (Manual) 90548 H (4192-0663) /uL Platelet Estimate RBC Morphology See below Anisocytosis 1+ H [place] Cells ABG pH (7.35-7.45) ABG pCO2 (35-45) mmHg ABG pO2 (80-100) mmHg ABG HCO3 (23-27) mmol/L ABG Total CO2 (23-27) mmol/L ABG O2 Saturation (95-100) % ABG Base Excess (-2-3) mmol/L Madi Test Respiration Rate O2 Delivery Device FiO2 % % PEEP or CPAP Sodium 134 L (137-145) mmol/L Potassium 4.1 (3.4-5.1) mmol/L Chloride 97 L (98-107) mmol/L Carbon Dioxide 21 L (22-32) mmol/L BUN 58 H (7-17) mg/dL Creatinine 4.28 H (0.52-1.04) mg/dL Estimated GFR 11 L (>60) mL/min BUN/Creatinine Ratio 13.6 (6-22) Glucose 107 (80-110) mg/dL Lactate 3.2 H (0.7-2.1) mmol/L Calcium 8.8 (8.4-10.2) mg/dL Total Bilirubin 1.8 H (0.2-1.3) mg/dL AST 80 H (14-36) IU/L ALT 72 H (<35) IU/L Alkaline Phosphatase 197 H (38-126) U/L Total Creatine Kinase 104 (30-135) U/L Troponin I 0.190 H* (0.01-0.034) ng/mL NT-Pro-B Natriuret Pep 46876 H (<125) pg/mL Total Protein 7.3 (6.3-8.2) g/dL Albumin 3.8 (3.5-5.0) g/dL Globulin 3.5 (1.7-4.1) g/dL Albumin/Globulin Ratio 1.1 (1.0-2.8) Procalcitonin 126 H (<0.5) ng/mL Urine RBC 10-30/hpf H (0-5/HPF) Urine WBC 30-100/hpf H (0-5/HPF) Ur Squamous Epith Cells 0-1 /hpf (0-5/HPF) Amorphous Sediment 1+ Urine Bacteria Many (>30) H (None) Granular Casts 0-1/lpf (None) Vol Urine Centrifuged 10ml (spun) A.calcoaceticus-baumannii cmplx PCR (Not Detect) Bacteroides fragilis (Not Detect) Shannan albicans (PCR) (Not Detect) Shannan auris (PCR) (Not Detect) C. glabrata (PCR) (Not Detect) C. krusei (PCR) (Not Detect) C. parapsilosis (PCR) (Not Detect) C. tropicalis (PCR) (Not Detect) SARS-CoV-2 (PCR) (Negative) C. neoform/gattii (PCR) (Not Detect) Enterobacterales (PCR) (Not Detect) E. cloacae complex PCR (Not Detect) Enterococc faecalis PCR (Not Detect) Enterococc faecium PCR (Not Detect) E. coli (PCR) (Not Detect) H. influenzae (PCR) (Not Detect) Influenza A (RT-PCR) (NEGATIVE) Influenza B (RT-PCR) (NEGATIVE) Klebsiella aerogenes (PCR) (Not Detect) Klebsiella oxytoca PCR (Not Detect) Klebsiella pneumoniae (Not Detect) List. monocytogenes PCR (Not Detect) N. meningitidis (PCR) (Not Detect) Proteus species (PCR) (Not Detect) RSV (PCR) (Negative) Salmonella spp. (PCR) (Not Detect) Serratia marcescens PCR (Not Detect) Staphylococcus sp PCR (Not Detect) Staph aureus (PCR) (Not Detect) mecA/C & MREJ Resist Gene (Not Detect) mecA/C-Methicil Resis Gene (Not Detect) mcr-1 Colistin Res Gene PCR (Not Detect) Staph epidermidis (PCR) (Not Detect) Staph lugdunensis PCR (Not Detect) S. maltophilia (PCR) (Not Detect) Streptococcus sp PCR (Not Detect) Group A Strep (PCR) (Not Detect) Strep agalactiae (PCR) (Not Detect) Strep pneumoniae (PCR) (Not Detect) P. aeruginosa (PCR) (Not Detect) Mian/B-Vanco Res Genes (Not Detect) blaIMP Car res Gene PCR (Not Detect) KPC-Carbap Res Gene PCR (Not Detect) blaNDM Car Res Gene PCR (Not Detect) OXA-48 Carbapenem Resis Gene (PCR) (Not Detect) blaVIM Car Res Gene PCR (Not Detect) CTX-M Gene Resistance (PCR) (Not Detect) 07/01/24 07/01/24 07/01/24 Range/Units 14:37 16:00 16:57 WBC (4.5-11.0) X10^3/uL RBC (4.0-5.2) X10^6/uL Hgb (12.0-16.0) g/dL Hct (36-46) % MCV (80-100) fL MCH (26-34) PG MCHC (30-36) % RDW (11.6-14.8) % Plt Count (150-400) X10^3/uL Neut % (Auto) Lymph % (Auto) [place] % (Auto) Eos % (Auto) Baso % (Auto) Lymph # (Auto) [place] # (Auto) Baso # (Auto) Total Counted Seg Neutrophils % (38-70) % Band Neutrophils % (3-7) % Lymphocytes % (Manual) (25-45) % Monocytes % (Manual) (2-11) % Metamyelocytes % (-0) % Neutrophils # (Manual) (3130-4497) /uL Platelet Estimate RBC Morphology Anisocytosis Cathi Cells ABG pH (7.35-7.45) ABG pCO2 (35-45) mmHg ABG pO2 (80-100) mmHg ABG HCO3 (23-27) mmol/L ABG Total CO2 (23-27) mmol/L ABG O2 Saturation (95-100) % ABG Base Excess (-2-3) mmol/L Madi Test Respiration Rate O2 Delivery Device FiO2 % % PEEP or CPAP Sodium (137-145) mmol/L Potassium (3.4-5.1) mmol/L Chloride (98-107) mmol/L Carbon Dioxide (22-32) mmol/L BUN (7-17) mg/dL Creatinine (0.52-1.04) mg/dL Estimated GFR (>60) mL/min BUN/Creatinine Ratio (6-22) Glucose (80-110) mg/dL Lactate 2.0 (0.7-2.1) mmol/L Calcium (8.4-10.2) mg/dL Total Bilirubin (0.2-1.3) mg/dL AST (14-36) IU/L ALT (<35) IU/L Alkaline Phosphatase (38-126) U/L Total Creatine Kinase (30-135) U/L Troponin I 0.174 H* (0.01-0.034) ng/mL NT-Pro-B Natriuret Pep (<125) pg/mL Total Protein (6.3-8.2) g/dL Albumin (3.5-5.0) g/dL Globulin (1.7-4.1) g/dL Albumin/Globulin Ratio (1.0-2.8) Procalcitonin (<0.5) ng/mL Urine RBC (0-5/HPF) Urine WBC (0-5/HPF) Ur Squamous Epith Cells (0-5/HPF) Amorphous Sediment Urine Bacteria (None) Granular Casts (None) Vol Urine Centrifuged A.calcoaceticus-baumannii cmplx PCR Not detected (Not Detect) Bacteroides fragilis Not detected (Not Detect) Shannan albicans (PCR) Not detected (Not Detect) Shannan auris (PCR) Not detected (Not Detect) C. glabrata (PCR) Not detected (Not Detect) C. krusei (PCR) Not detected (Not Detect) C. parapsilosis (PCR) Not detected (Not Detect) C. tropicalis (PCR) Not detected (Not Detect) SARS-CoV-2 (PCR) (Negative) C. neoform/gattii (PCR) Not detected (Not Detect) Enterobacterales (PCR) Detected (Not Detect) E. cloacae complex PCR Not detected (Not Detect) Enterococc faecalis PCR Not detected (Not Detect) Enterococc faecium PCR Not detected (Not Detect) E. coli (PCR) Detected (Not Detect) H. influenzae (PCR) Not detected (Not Detect) Influenza A (RT-PCR) (NEGATIVE) Influenza B (RT-PCR) (NEGATIVE) Klebsiella aerogenes (PCR) Not detected (Not Detect) Klebsiella oxytoca PCR Not detected (Not Detect) Klebsiella pneumoniae Not detected (Not Detect) List. monocytogenes PCR Not detected (Not Detect) N. meningitidis (PCR) Not detected (Not Detect) Proteus species (PCR) Not detected (Not Detect) RSV (PCR) (Negative) Salmonella spp. (PCR) Not detected (Not Detect) Serratia marcescens PCR Not detected (Not Detect) Staphylococcus sp PCR Not detected (Not Detect) Staph aureus (PCR) Not detected (Not Detect) mecA/C & MREJ Resist Gene Not applicable (Not Detect) mecA/C-Methicil Resis Gene Not applicable (Not Detect) mcr-1 Colistin Res Gene PCR Not detected (Not Detect) Staph epidermidis (PCR) Not detected (Not Detect) Staph lugdunensis PCR Not detected (Not Detect) S. maltophilia (PCR) Not detected (Not Detect) Streptococcus sp PCR Not detected (Not Detect) Group A Strep (PCR) Not detected (Not Detect) Strep agalactiae (PCR) Not detected (Not Detect) Strep pneumoniae (PCR) Not detected (Not Detect) P. aeruginosa (PCR) Not detected (Not Detect) Mian/B-Vanco Res Genes Not applicable (Not Detect) blaIMP Car res Gene PCR Not detected (Not Detect) KPC-Carbap Res Gene PCR Not detected (Not Detect) blaNDM Car Res Gene PCR Not detected (Not Detect) OXA-48 Carbapenem Resis Gene (PCR) Not detected (Not Detect) blaVIM Car Res Gene PCR Not detected (Not Detect) CTX-M Gene Resistance (PCR) Not detected (Not Detect) 07/01/24 07/01/24 07/01/24 Range/Units 20:36 21:58 22:40 WBC (4.5-11.0) X10^3/uL RBC (4.0-5.2) X10^6/uL Hgb (12.0-16.0) g/dL Hct (36-46) % MCV (80-100) fL MCH (26-34) PG MCHC (30-36) % RDW (11.6-14.8) % Plt Count (150-400) X10^3/uL Neut % (Auto) Lymph % (Auto) [place] % (Auto) Eos % (Auto) Baso % (Auto) Lymph # (Auto) [place] # (Auto) Baso # (Auto) Total Counted Seg Neutrophils % (38-70) % Band Neutrophils % (3-7) % Lymphocytes % (Manual) (25-45) % Monocytes % (Manual) (2-11) % Metamyelocytes % (-0) % Neutrophils # (Manual) (6900-3775) /uL Platelet Estimate RBC Morphology Anisocytosis Cathi Cells ABG pH (7.35-7.45) ABG pCO2 (35-45) mmHg ABG pO2 (80-100) mmHg ABG HCO3 (23-27) mmol/L ABG Total CO2 (23-27) mmol/L ABG O2 Saturation (95-100) % ABG Base Excess (-2-3) mmol/L Madi Test Respiration Rate O2 Delivery Device FiO2 % % PEEP or CPAP Sodium (137-145) mmol/L Potassium (3.4-5.1) mmol/L Chloride (98-107) mmol/L Carbon Dioxide (22-32) mmol/L BUN (7-17) mg/dL Creatinine (0.52-1.04) mg/dL Estimated GFR (>60) mL/min BUN/Creatinine Ratio (6-22) Glucose (80-110) mg/dL Lactate 3.2 H 4.0 H (0.7-2.1) mmol/L Calcium (8.4-10.2) mg/dL Total Bilirubin (0.2-1.3) mg/dL AST (14-36) IU/L ALT (<35) IU/L Alkaline Phosphatase (38-126) U/L Total Creatine Kinase (30-135) U/L Troponin I (0.01-0.034) ng/mL NT-Pro-B Natriuret Pep (<125) pg/mL Total Protein (6.3-8.2) g/dL Albumin (3.5-5.0) g/dL Globulin (1.7-4.1) g/dL Albumin/Globulin Ratio (1.0-2.8) Procalcitonin (<0.5) ng/mL Urine RBC (0-5/HPF) Urine WBC (0-5/HPF) Ur Squamous Epith Cells (0-5/HPF) Amorphous Sediment Urine Bacteria (None) Granular Casts (None) Vol Urine Centrifuged A.calcoaceticus-baumannii cmplx PCR (Not Detect) Bacteroides fragilis (Not Detect) Shannan albicans (PCR) (Not Detect) Shannan auris (PCR) (Not Detect) C. glabrata (PCR) (Not Detect) C. krusei (PCR) (Not Detect) C. parapsilosis (PCR) (Not Detect) C. tropicalis (PCR) (Not Detect) SARS-CoV-2 (PCR) Negative (Negative) C. neoform/gattii (PCR) (Not Detect) Enterobacterales (PCR) (Not Detect) E. cloacae complex PCR (Not Detect) Enterococc faecalis PCR (Not Detect) Enterococc faecium PCR (Not Detect) E. coli (PCR) (Not Detect) H. influenzae (PCR) (Not Detect) Influenza A (RT-PCR) Flu a negative (NEGATIVE) Influenza B (RT-PCR) Flu b negative (NEGATIVE) Klebsiella aerogenes (PCR) (Not Detect) Klebsiella oxytoca PCR (Not Detect) Klebsiella pneumoniae (Not Detect) List. monocytogenes PCR (Not Detect) N. meningitidis (PCR) (Not Detect) Proteus species (PCR) (Not Detect) RSV (PCR) Negative (Negative) Salmonella spp. (PCR) (Not Detect) Serratia marcescens PCR (Not Detect) Staphylococcus sp PCR (Not Detect) Staph aureus (PCR) (Not Detect) mecA/C & MREJ Resist Gene (Not Detect) mecA/C-Methicil Resis Gene (Not Detect) mcr-1 Colistin Res Gene PCR (Not Detect) Staph epidermidis (PCR) (Not Detect) Staph lugdunensis PCR (Not Detect) S. maltophilia (PCR) (Not Detect) Streptococcus sp PCR (Not Detect) Group A Strep (PCR) (Not Detect) Strep agalactiae (PCR) (Not Detect) Strep pneumoniae (PCR) (Not Detect) P. aeruginosa (PCR) (Not Detect) Mian/B-Vanco Res Genes (Not Detect) blaIMP Car res Gene PCR (Not Detect) KPC-Carbap Res Gene PCR (Not Detect) blaNDM Car Res Gene PCR (Not Detect) OXA-48 Carbapenem Resis Gene (PCR) (Not Detect) blaVIM Car Res Gene PCR (Not Detect) CTX-M Gene Resistance (PCR) (Not Detect) 07/01/24 07/01/24 07/02/24 Range/Units 23:10 23:40 01:30 WBC 30.3 H* (4.5-11.0) X10^3/uL RBC 4.28 (4.0-5.2) X10^6/uL Hgb 12.6 (12.0-16.0) g/dL Hct 38.8 (36-46) % MCV 90.6 (80-100) fL MCH 29.5 (26-34) PG MCHC 32.6 (30-36) % RDW 15.2 H (11.6-14.8) % Plt Count 160 (150-400) X10^3/uL Neut % (Auto) Not Reportable Lymph % (Auto) Not Reportable [place] % (Auto) Not Reportable Eos % (Auto) Not Reportable Baso % (Auto) Not Reportable Lymph # (Auto) Not Reportable [place] # (Auto) Not Reportable Baso # (Auto) Not Reportable Total Counted 100 Seg Neutrophils % 63.0 (38-70) % Band Neutrophils % 30.0 H (3-7) % Lymphocytes % (Manual) 3.0 L (25-45) % Monocytes % (Manual) 4.0 (2-11) % Metamyelocytes % (-0) % Neutrophils # (Manual) 17874 H (3754-0681) /uL Platelet Estimate Adequate on smear RBC Morphology See below Anisocytosis 1+ H Finley Cells 1+ H ABG pH 7.26 L* (7.35-7.45) ABG pCO2 47.8 H (35-45) mmHg ABG pO2 109 H (80-100) mmHg ABG HCO3 22 L (23-27) mmol/L ABG Total CO2 21 L (23-27) mmol/L ABG O2 Saturation 97 (95-100) % ABG Base Excess -5.6 L (-2-3) mmol/L Madi Test Positive Respiration Rate 16 O2 Delivery Device Adult ventilator FiO2 % 60.0 % % PEEP or CPAP 5 Sodium 137 (137-145) mmol/L Potassium 3.7 (3.4-5.1) mmol/L Chloride 102 (98-107) mmol/L Carbon Dioxide 19 L (22-32) mmol/L BUN 63 H (7-17) mg/dL Creatinine 4.44 H (0.52-1.04) mg/dL Estimated GFR 10 L (>60) mL/min BUN/Creatinine Ratio 14.2 (6-22) Glucose 103 (80-110) mg/dL Lactate 3.4 H 2.9 H (0.7-2.1) mmol/L Calcium 8.3 L (8.4-10.2) mg/dL Total Bilirubin 1.9 H (0.2-1.3) mg/dL AST 66 H (14-36) IU/L ALT 60 H (<35) IU/L Alkaline Phosphatase 348 H D (38-126) U/L Total Creatine Kinase (30-135) U/L Troponin I 0.178 H* (0.01-0.034) ng/mL NT-Pro-B Natriuret Pep (<125) pg/mL Total Protein 6.7 (6.3-8.2) g/dL Albumin 3.3 L (3.5-5.0) g/dL Globulin 3.4 (1.7-4.1) g/dL Albumin/Globulin Ratio 1.0 (1.0-2.8) Procalcitonin (<0.5) ng/mL Urine RBC (0-5/HPF) Urine WBC (0-5/HPF) Ur Squamous Epith Cells (0-5/HPF) Amorphous Sediment Urine Bacteria (None) Granular Casts (None) Vol Urine Centrifuged A.calcoaceticus-baumannii cmplx PCR (Not Detect) Bacteroides fragilis (Not Detect) Shannan albicans (PCR) (Not Detect) Shannan auris (PCR) (Not Detect) C. glabrata (PCR) (Not Detect) C. krusei (PCR) (Not Detect) C. parapsilosis (PCR) (Not Detect) C. tropicalis (PCR) (Not Detect) SARS-CoV-2 (PCR) (Negative) C. neoform/gattii (PCR) (Not Detect) Enterobacterales (PCR) (Not Detect) E. cloacae complex PCR (Not Detect) Enterococc faecalis PCR (Not Detect) Enterococc faecium PCR (Not Detect) E. coli (PCR) (Not Detect) H. influenzae (PCR) (Not Detect) Influenza A (RT-PCR) (NEGATIVE) Influenza B (RT-PCR) (NEGATIVE) Klebsiella aerogenes (PCR) (Not Detect) Klebsiella oxytoca PCR (Not Detect) Klebsiella pneumoniae (Not Detect) List. monocytogenes PCR (Not Detect) N. meningitidis (PCR) (Not Detect) Proteus species (PCR) (Not Detect) RSV (PCR) (Negative) Salmonella spp. (PCR) (Not Detect) Serratia marcescens PCR (Not Detect) Staphylococcus sp PCR (Not Detect) Staph aureus (PCR) (Not Detect) mecA/C & MREJ Resist Gene (Not Detect) mecA/C-Methicil Resis Gene (Not Detect) mcr-1 Colistin Res Gene PCR (Not Detect) Staph epidermidis (PCR) (Not Detect) Staph lugdunensis PCR (Not Detect) S. maltophilia (PCR) (Not Detect) Streptococcus sp PCR (Not Detect) Group A Strep (PCR) (Not Detect) Strep agalactiae (PCR) (Not Detect) Strep pneumoniae (PCR) (Not Detect) P. aeruginosa (PCR) (Not Detect) Mian/B-Vanco Res Genes (Not Detect) blaIMP Car res Gene PCR (Not Detect) KPC-Carbap Res Gene PCR (Not Detect) blaNDM Car Res Gene PCR (Not Detect) OXA-48 Carbapenem Resis Gene (PCR) (Not Detect) blaVIM Car Res Gene PCR (Not Detect) CTX-M Gene Resistance (PCR) (Not Detect) Imaging Data CT scan - head: Radiologist's Impression: Close Head CT (Signed) Gordon,Meenu - 07/01/24 Chest/Abdomen/Pelvis CT (Signed) Meenu Gordon - 07/01/24 Launch?Image [address] [address] [address] Scan Report Signed Patient: Krista Arce MR#: [id number] : 1955 Acct:[id number] Age/Sex: 68 / F Date of Service: 07/01/24 Loc: ED Accession Number: [id number] Procedure: CT head/brain wo con Ordering Provider: Kleber Kelley MD PROCEDURE: CT HEAD/BRAIN WO CON INDICATIONS: elevated wbc, new renal failure, new elevated trop TECHNIQUE: Noncontrast 4.5 mm thick angled axial sections acquired from the foramen magnum to the vertex, with coronal and sagittal reformats. For radiation dose reduction, the following was used: automated exposure control, adjustment of mA and/or kV according to patient size. COMPARISON: None. FINDINGS: Image quality: Diagnostic. CSF spaces: Basal cisterns are patent. No extra-axial fluid collections. The ventricles are symmetric in size and shape. Brain: No intracranial bleeds or masses. There is cerebral volume loss for age, with resultant ventricular and sulcal prominence. There are periventricular and deep white matter chronic small vessel ischemic changes. There is intracranial internal carotid artery atherosclerosis. Skull and face: Calvarium and visualized facial bones appear intact, without suspicious lesions. Sinuses: Visualized sinuses and mastoids are clear. IMPRESSION: 1. No acute intracranial process. 2. Mild atrophy and chronic microvascular ischemic changes. Dictated by: Meenu Gordon M.D. on 07/01/2024 at 15:54 Approved by: Meenu Gordon M.D. on 07/01/2024 at 15:54 CT chest abdomen pelvis noncontrast: Radiologist's Impression: [address] [address] [address] Scan Report Signed Patient: Krista Arce MR#: [id number] : 1955 Acct:[id number] Age/Sex: 68 / F Date of Service: 07/01/24 Loc: ED Accession Number: [id number] Procedure: CT chest abd pel wo con Ordering Provider: Kleber Kelley MD PROCEDURE: CT CHEST ABD PEL WO CON INDICATIONS: elevated wbc, new renal failure, new elevated trop TECHNIQUE: After the administration of oral contrast, 5 mm thick sections acquired from the lung apices to the symphysis pubis. 5 mm thick coronal and sagittal reformats acquired, with additional 7 mm coronal MIP reformats through the lungs. For radiation dose reduction, the following was used: automated exposure control, adjustment of mA and/or kV according to patient size. COMPARISON: None. FINDINGS: Image quality: Diagnostic. CHEST: Lower Neck: No enlarged lymph nodes. Thyroid: No thyroid nodules which require sonographic follow up, per consensus guidelines. Axillae: No enlarged lymph nodes. Chest Wall: Unremarkable. Bones: Unremarkable. Lungs and Pleura: Streaky opacities are present bilaterally most notable in the left base without gross consolidation. Heart: Heart size is normal. No pericardial effusion. Thoracic Vessels: The aorta and pulmonary arteries demonstrate normal size. Mediastinum and Davida: No enlarged lymph nodes. Calcified nodes are present. Esophagus: No wall thickening. Mild hiatal hernia. ABDOMEN: Liver: No solid mass. Steatosis. Gallbladder: No radiopaque gallstones or wall thickening. Biliary ducts: No biliary dilation. Pancreas: No ductal dilation. Spleen: Size is within normal limits. Adrenal Glands: No adrenal nodules. Kidneys and Ureters: Mild left hydronephrosis and proximal most hydroureter. There is a 6 mm proximal ureteral calcification, Hounsfield units 953. Stomach and Bowel: Normal colonic caliber, without significant wall thickening. Minimal colonic diverticula are present. Peritoneum: No abnormal intraperitoneal fluid. No free air. Ventral Wall: No hernia. Abdominal Nodes: No retroperitoneal or mesenteric adenopathy by size criteria. Vessels: Aorta and inferior vena cava are normal in size. PELVIS: Pelvic Organs: Uterus is lobulated in mildly prominent for age. Bladder: Unremarkable. Pelvic Nodes: No enlarged lymph nodes. Miscellaneous: No inguinal hernias are seen. Bones: No aggressive osseous abnormality. IMPRESSION: Left hydronephrosis and proximal hydroureter secondary to 6 mm ureteral proximal stone. Diverticulosis. Mild lobulated appearance of the uterus. While this could represent fibroids, other etiologies cannot be excluded. Ultrasound is recommended on a nonemergent basis for further evaluation. Dictated by: Meenu Gordon M.D. on 07/01/2024 at 15:54 Approved by: Meenu Gordon M.D. on 07/01/2024 at 15:57 ECG Data Attestation: I personally reviewed and interpreted this ECG as follows: Interpretation: Sinus tachycardia with rate 103, no obvious ST segment elevation or depression changes. Right bundle branch block noted however. IA 134, QRS 128, QTC 487. 1602, repeat study, sinus tachycardia with rate 101. Right bundle branch block again noted. No ST segment elevation or depression changes. IA interval 138, QRS 126, QTC 484. MDM Narrative Medical decision making narrative: 68-year-old with nontraumatic left flank pain for 2 days, nausea without emesis, also some recent nonbloody loose stools, no trauma. No fever. Denies chest pain shortness of breath. Afebrile on triage. EKG, chest x-ray, labs pending. EKG without obvious ischemic changes, initial troponin 0.19 elevated. None for comparison. Abnormal labs including markedly elevated white blood cell count, elevated troponin, elevated creatinine, no comparison labs here. We will obtain comparison labs from outpatient setting or alternate facility, await comparison studies results. Outside labs review. Copy of labs from [facility], 01/24/2024: white blood cell count 6k, hemoglobin 14.1, platelets [id number]. Glucose 75, BUN 19, creatinine 0.69, sodium 137, potassium 3.6, chloride 101, serum CO2 25. T bili 1.5, alkaline phosphatase 53, ALT 28, AST 26. Albumin 4.2. Markedly significant change in baseline labs from January 2024 to today. Elevated troponin without chest pain, could be type 2 injury from sepsis/renal failure. Creatinine elevated, we will image noncontrast. CT, chest, abdomen, pelvis noncontrast study ordered. We will need transfer to higher level of care capable facility with Cardiology, Nephrology, Oncology. Patient/ aware. CT head no acute changes. See radiology report. CT chest abdomen and pelvis without contrast. Shows left hydronephrosis and proximal hydroureter secondary to 6 mm ureteral proximal stone. Diverticulosis noted, lobulated appearance of the uterus noted. See radiology report. Repeat troponin 0.17 also elevated. BNP also elevated. Urinalysis suspicious for infection. Blood cultures requested prior, we will hold on IV fluid given markedly elevated BNP and elevated creatinine. IV ceftriaxone antibiotic. Normotensive, afebrile, but markedly elevated white blood cell count and procalcitonin. Discussed CT results with patient/, need higher level of care with Nephrology and Cardiology Services not available here. We will initiate bed search 1914, case discussed with [facility] cardiology Dr. Elizabeth, agrees troponin elevation might represent type 2 injury due to sepsis and/or elevated creatinine/MARILU, no ACS regimen heparin for now, he or a colleague can consult if transferred for Nephrology and other services to their system. Await call back from hospitalist. 1929, case discussed with Urology Dr. Laurent here, in case patient might be a candidate for ureteral stenting if there is prolonged time for transfer. Patient is currently hemodynamically stable, but he is aware of the patient. If patient is here overnight in the emergency department he requests patient be made NPO after midnight, in case stenting needed tomorrow. Await call back from hospitalist Rach Payne. Signed out to Dr. Hernandes 2000 Dr. Hernandes, patient signed out to me by Dr. Kelley. I have seen evaluated patient myself. She overall appears ill and dry. She was slightly tachypneic but clear breath sounds without wheezing rales or rhonchi no peripheral edema. She does have albuterol listed in her medication. We will try some albuterol. I have added Zosyn as a broader spectrum antibiotic. She was getting more tachycardic heart rate now 20s. Repeat lactate pending. Will try a small fluid bolus because she clinically appears dry Patient does have troponins that are positive but agree with probably demand ischemia. However she was becoming more hypoxic can not officially rule out pulmonary embolism, she was started on a heparin drip. May also have congestive heart failure but again she appears dry BNP is significantly elevated at 42,000 two thousand but is likely secondary to renal failure. CT does not show any pulmonary edema or pleural effusions or evidence of pneumonia. Patient monitored progressively getting more and more tachypneic. Tried albuterol no real improvement. Ultimately due to airway protection tachypnea decision made to intubate patient. ABG does not show significant hypoxia. Initially sepsis IV fluids were not given secondary to quite elevated BNP. She has not really put out any urine in his now oliguric. Nurse did flush Kuhn there is lot of sediment it is draining and in proper place. Patient becoming hypotensive tachycardic oliguric. Sepsis fluids ordered Levophed started. Consults: 2044 DR. Jett Hospitalist at [facility], updated patient's symptoms test results accepts patient [id number] ina barboza, hospitalist updated on patient's symptoms and test results and accepts patient After patient got intubated patient needed higher level of care facilities were notified of change in status 23:05 Dr. Jose Rafael Flores [facility] hospital director updated patient's symptoms test results reports that significant capacity no bed availability for an unknown amount of time. Agrees with heparin drip until PE completely ruled out with bilateral lower extremity Dopplers and echo [id number] Dr. Michelle Farah, in [place], updated patient's symptoms test results unable to have any sort of IR procedure or stent placed this evening. But they do have a ready available ICU bed Urology Dr. Laurent consulted in regards to need emergent stent placement for septic shock. He agrees to place stent patient will then be transferred back to the ER where patient is accepted at [facility] and bed is available Blood cultures have already returned as Gram-negative bacteremia, faxed to accepting hospital <Lana Hernandes, - Last Filed: 07/02/24 06:14> Lab Data Labs: Lab Results 07/01/24 07/01/24 07/01/24 Range/Units 13:15 13:40 13:46 WBC 30.4 H* (4.5-11.0) X10^3/uL RBC 4.43 (4.0-5.2) X10^6/uL Hgb 13.1 (12.0-16.0) g/dL Hct 39.7 (36-46) % MCV 89.7 (80-100) fL MCH 29.5 (26-34) PG MCHC 32.9 (30-36) % RDW 14.9 H (11.6-14.8) % Plt Count 224 (150-400) X10^3/uL Neut % (Auto) Not Reportable Lymph % (Auto) Not Reportable [place] % (Auto) Not Reportable Eos % (Auto) Not Reportable Baso % (Auto) Not Reportable Lymph # (Auto) Not Reportable [place] # (Auto) Not Reportable Baso # (Auto) Not Reportable Total Counted 100 Seg Neutrophils % 63.0 (38-70) % Band Neutrophils % 32.0 H (3-7) % Lymphocytes % (Manual) 2.0 L (25-45) % Monocytes % (Manual) 1.0 L (2-11) % Metamyelocytes % 2.0 H (-0) % Neutrophils # (Manual) 20040 H (2941-4976) /uL Platelet Estimate RBC Morphology See below Anisocytosis 1+ H Cathi Cells ABG pH (7.35-7.45) ABG pCO2 (35-45) mmHg ABG pO2 (80-100) mmHg ABG HCO3 (23-27) mmol/L ABG Total CO2 (23-27) mmol/L ABG O2 Saturation (95-100) % ABG Base Excess (-2-3) mmol/L Madi Test Respiration Rate O2 Delivery Device FiO2 % % PEEP or CPAP Sodium 134 L (137-145) mmol/L Potassium 4.1 (3.4-5.1) mmol/L Chloride 97 L (98-107) mmol/L Carbon Dioxide 21 L (22-32) mmol/L BUN 58 H (7-17) mg/dL Creatinine 4.28 H (0.52-1.04) mg/dL Estimated GFR 11 L (>60) mL/min BUN/Creatinine Ratio 13.6 (6-22) Glucose 107 (80-110) mg/dL Lactate 3.2 H (0.7-2.1) mmol/L Calcium 8.8 (8.4-10.2) mg/dL Total Bilirubin 1.8 H (0.2-1.3) mg/dL AST 80 H (14-36) IU/L ALT 72 H (<35) IU/L Alkaline Phosphatase 197 H (38-126) U/L Total Creatine Kinase 104 (30-135) U/L Troponin I 0.190 H* (0.01-0.034) ng/mL NT-Pro-B Natriuret Pep 12037 H (<125) pg/mL Total Protein 7.3 (6.3-8.2) g/dL Albumin 3.8 (3.5-5.0) g/dL Globulin 3.5 (1.7-4.1) g/dL Albumin/Globulin Ratio 1.1 (1.0-2.8) Procalcitonin 126 H (<0.5) ng/mL Urine RBC 10-30/hpf H (0-5/HPF) Urine WBC 30-100/hpf H (0-5/HPF) Ur Squamous Epith Cells 0-1 /hpf (0-5/HPF) Amorphous Sediment 1+ Urine Bacteria Many (>30) H (None) Granular Casts 0-1/lpf (None) Vol Urine Centrifuged 10ml (spun) A.calcoaceticus-baumannii cmplx PCR (Not Detect) Bacteroides fragilis (Not Detect) Shannan albicans (PCR) (Not Detect) Shannan auris (PCR) (Not Detect) C. glabrata (PCR) (Not Detect) C. krusei (PCR) (Not Detect) C. parapsilosis (PCR) (Not Detect) C. tropicalis (PCR) (Not Detect) SARS-CoV-2 (PCR) (Negative) C. neoform/gattii (PCR) (Not Detect) Enterobacterales (PCR) (Not Detect) E. cloacae complex PCR (Not Detect) Enterococc faecalis PCR (Not Detect) Enterococc faecium PCR (Not Detect) E. coli (PCR) (Not Detect) H. influenzae (PCR) (Not Detect) Influenza A (RT-PCR) (NEGATIVE) Influenza B (RT-PCR) (NEGATIVE) Klebsiella aerogenes (PCR) (Not Detect) Klebsiella oxytoca PCR (Not Detect) Klebsiella pneumoniae (Not Detect) List. monocytogenes PCR (Not Detect) N. meningitidis (PCR) (Not Detect) Proteus species (PCR) (Not Detect) RSV (PCR) (Negative) Salmonella spp. (PCR) (Not Detect) Serratia marcescens PCR (Not Detect) Staphylococcus sp PCR (Not Detect) Staph aureus (PCR) (Not Detect) mecA/C & MREJ Resist Gene (Not Detect) mecA/C-Methicil Resis Gene (Not Detect) mcr-1 Colistin Res Gene PCR (Not Detect) Staph epidermidis (PCR) (Not Detect) Staph lugdunensis PCR (Not Detect) S. maltophilia (PCR) (Not Detect) Streptococcus sp PCR (Not Detect) Group A Strep (PCR) (Not Detect) Strep agalactiae (PCR) (Not Detect) Strep pneumoniae (PCR) (Not Detect) P. aeruginosa (PCR) (Not Detect) Mian/B-Vanco Res Genes (Not Detect) blaIMP Car res Gene PCR (Not Detect) KPC-Carbap Res Gene PCR (Not Detect) blaNDM Car Res Gene PCR (Not Detect) OXA-48 Carbapenem Resis Gene (PCR) (Not Detect) blaVIM Car Res Gene PCR (Not Detect) CTX-M Gene Resistance (PCR) (Not Detect) 07/01/24 07/01/24 07/01/24 Range/Units 14:37 16:00 16:57 WBC (4.5-11.0) X10^3/uL RBC (4.0-5.2) X10^6/uL Hgb (12.0-16.0) g/dL Hct (36-46) % MCV (80-100) fL MCH (26-34) PG MCHC (30-36) % RDW (11.6-14.8) % Plt Count (150-400) X10^3/uL Neut % (Auto) Lymph % (Auto) [place] % (Auto) Eos % (Auto) Baso % (Auto) Lymph # (Auto) [place] # (Auto) Baso # (Auto) Total Counted Seg Neutrophils % (38-70) % Band Neutrophils % (3-7) % Lymphocytes % (Manual) (25-45) % Monocytes % (Manual) (2-11) % Metamyelocytes % (-0) % Neutrophils # (Manual) (1632-8334) /uL Platelet Estimate RBC Morphology Anisocytosis Cathi Cells ABG pH (7.35-7.45) ABG pCO2 (35-45) mmHg ABG pO2 (80-100) mmHg ABG HCO3 (23-27) mmol/L ABG Total CO2 (23-27) mmol/L ABG O2 Saturation (95-100) % ABG Base Excess (-2-3) mmol/L Madi Test Respiration Rate O2 Delivery Device FiO2 % % PEEP or CPAP Sodium (137-145) mmol/L Potassium (3.4-5.1) mmol/L Chloride (98-107) mmol/L Carbon Dioxide (22-32) mmol/L BUN (7-17) mg/dL Creatinine (0.52-1.04) mg/dL Estimated GFR (>60) mL/min BUN/Creatinine Ratio (6-22) Glucose (80-110) mg/dL Lactate 2.0 (0.7-2.1) mmol/L Calcium (8.4-10.2) mg/dL Total Bilirubin (0.2-1.3) mg/dL AST (14-36) IU/L ALT (<35) IU/L Alkaline Phosphatase (38-126) U/L Total Creatine Kinase (30-135) U/L Troponin I 0.174 H* (0.01-0.034) ng/mL NT-Pro-B Natriuret Pep (<125) pg/mL Total Protein (6.3-8.2) g/dL Albumin (3.5-5.0) g/dL Globulin (1.7-4.1) g/dL Albumin/Globulin Ratio (1.0-2.8) Procalcitonin (<0.5) ng/mL Urine RBC (0-5/HPF) Urine WBC (0-5/HPF) Ur Squamous Epith Cells (0-5/HPF) Amorphous Sediment Urine Bacteria (None) Granular Casts (None) Vol Urine Centrifuged A.calcoaceticus-baumannii cmplx PCR Not detected (Not Detect) Bacteroides fragilis Not detected (Not Detect) Shannan albicans (PCR) Not detected (Not Detect) Shannan auris (PCR) Not detected (Not Detect) C. glabrata (PCR) Not detected (Not Detect) C. krusei (PCR) Not detected (Not Detect) C. parapsilosis (PCR) Not detected (Not Detect) C. tropicalis (PCR) Not detected (Not Detect) SARS-CoV-2 (PCR) (Negative) C. neoform/gattii (PCR) Not detected (Not Detect) Enterobacterales (PCR) Detected (Not Detect) E. cloacae complex PCR Not detected (Not Detect) Enterococc faecalis PCR Not detected (Not Detect) Enterococc faecium PCR Not detected (Not Detect) E. coli (PCR) Detected (Not Detect) H. influenzae (PCR) Not detected (Not Detect) Influenza A (RT-PCR) (NEGATIVE) Influenza B (RT-PCR) (NEGATIVE) Klebsiella aerogenes (PCR) Not detected (Not Detect) Klebsiella oxytoca PCR Not detected (Not Detect) Klebsiella pneumoniae Not detected (Not Detect) List. monocytogenes PCR Not detected (Not Detect) N. meningitidis (PCR) Not detected (Not Detect) Proteus species (PCR) Not detected (Not Detect) RSV (PCR) (Negative) Salmonella spp. (PCR) Not detected (Not Detect) Serratia marcescens PCR Not detected (Not Detect) Staphylococcus sp PCR Not detected (Not Detect) Staph aureus (PCR) Not detected (Not Detect) mecA/C & MREJ Resist Gene Not applicable (Not Detect) mecA/C-Methicil Resis Gene Not applicable (Not Detect) mcr-1 Colistin Res Gene PCR Not detected (Not Detect) Staph epidermidis (PCR) Not detected (Not Detect) Staph lugdunensis PCR Not detected (Not Detect) S. maltophilia (PCR) Not detected (Not Detect) Streptococcus sp PCR Not detected (Not Detect) Group A Strep (PCR) Not detected (Not Detect) Strep agalactiae (PCR) Not detected (Not Detect) Strep pneumoniae (PCR) Not detected (Not Detect) P. aeruginosa (PCR) Not detected (Not Detect) Mian/B-Vanco Res Genes Not applicable (Not Detect) blaIMP Car res Gene PCR Not detected (Not Detect) KPC-Carbap Res Gene PCR Not detected (Not Detect) blaNDM Car Res Gene PCR Not detected (Not Detect) OXA-48 Carbapenem Resis Gene (PCR) Not detected (Not Detect) blaVIM Car Res Gene PCR Not detected (Not Detect) CTX-M Gene Resistance (PCR) Not detected (Not Detect) 07/01/24 07/01/24 07/01/24 Range/Units 20:36 21:58 22:40 WBC (4.5-11.0) X10^3/uL RBC (4.0-5.2) X10^6/uL Hgb (12.0-16.0) g/dL Hct (36-46) % MCV (80-100) fL MCH (26-34) PG MCHC (30-36) % RDW (11.6-14.8) % Plt Count (150-400) X10^3/uL Neut % (Auto) Lymph % (Auto) [place] % (Auto) Eos % (Auto) Baso % (Auto) Lymph # (Auto) [place] # (Auto) Baso # (Auto) Total Counted Seg Neutrophils % (38-70) % Band Neutrophils % (3-7) % Lymphocytes % (Manual) (25-45) % Monocytes % (Manual) (2-11) % Metamyelocytes % (-0) % Neutrophils # (Manual) (6203-2836) /uL Platelet Estimate RBC Morphology Anisocytosis Finley Cells ABG pH (7.35-7.45) ABG pCO2 (35-45) mmHg ABG pO2 (80-100) mmHg ABG HCO3 (23-27) mmol/L ABG Total CO2 (23-27) mmol/L ABG O2 Saturation (95-100) % ABG Base Excess (-2-3) mmol/L Madi Test Respiration Rate O2 Delivery Device FiO2 % % PEEP or CPAP Sodium (137-145) mmol/L Potassium (3.4-5.1) mmol/L Chloride (98-107) mmol/L Carbon Dioxide (22-32) mmol/L BUN (7-17) mg/dL Creatinine (0.52-1.04) mg/dL Estimated GFR (>60) mL/min BUN/Creatinine Ratio (6-22) Glucose (80-110) mg/dL Lactate 3.2 H 4.0 H (0.7-2.1) mmol/L Calcium (8.4-10.2) mg/dL Total Bilirubin (0.2-1.3) mg/dL AST (14-36) IU/L ALT (<35) IU/L Alkaline Phosphatase (38-126) U/L Total Creatine Kinase (30-135) U/L Troponin I (0.01-0.034) ng/mL NT-Pro-B Natriuret Pep (<125) pg/mL Total Protein (6.3-8.2) g/dL Albumin (3.5-5.0) g/dL Globulin (1.7-4.1) g/dL Albumin/Globulin Ratio (1.0-2.8) Procalcitonin (<0.5) ng/mL Urine RBC (0-5/HPF) Urine WBC (0-5/HPF) Ur Squamous Epith Cells (0-5/HPF) Amorphous Sediment Urine Bacteria (None) Granular Casts (None) Vol Urine Centrifuged A.calcoaceticus-baumannii cmplx PCR (Not Detect) Bacteroides fragilis (Not Detect) Shannan albicans (PCR) (Not Detect) Shannan auris (PCR) (Not Detect) C. glabrata (PCR) (Not Detect) C. krusei (PCR) (Not Detect) C. parapsilosis (PCR) (Not Detect) C. tropicalis (PCR) (Not Detect) SARS-CoV-2 (PCR) Negative (Negative) C. neoform/gattii (PCR) (Not Detect) Enterobacterales (PCR) (Not Detect) E. cloacae complex PCR (Not Detect) Enterococc faecalis PCR (Not Detect) Enterococc faecium PCR (Not Detect) E. coli (PCR) (Not Detect) H. influenzae (PCR) (Not Detect) Influenza A (RT-PCR) Flu a negative (NEGATIVE) Influenza B (RT-PCR) Flu b negative (NEGATIVE) Klebsiella aerogenes (PCR) (Not Detect) Klebsiella oxytoca PCR (Not Detect) Klebsiella pneumoniae (Not Detect) List. monocytogenes PCR (Not Detect) N. meningitidis (PCR) (Not Detect) Proteus species (PCR) (Not Detect) RSV (PCR) Negative (Negative) Salmonella spp. (PCR) (Not Detect) Serratia marcescens PCR (Not Detect) Staphylococcus sp PCR (Not Detect) Staph aureus (PCR) (Not Detect) mecA/C & MREJ Resist Gene (Not Detect) mecA/C-Methicil Resis Gene (Not Detect) mcr-1 Colistin Res Gene PCR (Not Detect) Staph epidermidis (PCR) (Not Detect) Staph lugdunensis PCR (Not Detect) S. maltophilia (PCR) (Not Detect) Streptococcus sp PCR (Not Detect) Group A Strep (PCR) (Not Detect) Strep agalactiae (PCR) (Not Detect) Strep pneumoniae (PCR) (Not Detect) P. aeruginosa (PCR) (Not Detect) Mian/B-Vanco Res Genes (Not Detect) blaIMP Car res Gene PCR (Not Detect) KPC-Carbap Res Gene PCR (Not Detect) blaNDM Car Res Gene PCR (Not Detect) OXA-48 Carbapenem Resis Gene (PCR) (Not Detect) blaVIM Car Res Gene PCR (Not Detect) CTX-M Gene Resistance (PCR) (Not Detect) 07/01/24 07/01/24 07/02/24 Range/Units 23:10 23:40 01:30 WBC 30.3 H* (4.5-11.0) X10^3/uL RBC 4.28 (4.0-5.2) X10^6/uL Hgb 12.6 (12.0-16.0) g/dL Hct 38.8 (36-46) % MCV 90.6 (80-100) fL MCH 29.5 (26-34) PG MCHC 32.6 (30-36) % RDW 15.2 H (11.6-14.8) % Plt Count 160 (150-400) X10^3/uL Neut % (Auto) Not Reportable Lymph % (Auto) Not Reportable [place] % (Auto) Not Reportable Eos % (Auto) Not Reportable Baso % (Auto) Not Reportable Lymph # (Auto) Not Reportable [place] # (Auto) Not Reportable Baso # (Auto) Not Reportable Total Counted 100 Seg Neutrophils % 63.0 (38-70) % Band Neutrophils % 30.0 H (3-7) % Lymphocytes % (Manual) 3.0 L (25-45) % Monocytes % (Manual) 4.0 (2-11) % Metamyelocytes % (-0) % Neutrophils # (Manual) 61978 H (1467-4818) /uL Platelet Estimate Adequate on smear RBC Morphology See below Anisocytosis 1+ H Finley Cells 1+ H ABG pH 7.26 L* (7.35-7.45) ABG pCO2 47.8 H (35-45) mmHg ABG pO2 109 H (80-100) mmHg ABG HCO3 22 L (23-27) mmol/L ABG Total CO2 21 L (23-27) mmol/L ABG O2 Saturation 97 (95-100) % ABG Base Excess -5.6 L (-2-3) mmol/L Madi Test Positive Respiration Rate 16 O2 Delivery Device Adult ventilator FiO2 % 60.0 % % PEEP or CPAP 5 Sodium 137 (137-145) mmol/L Potassium 3.7 (3.4-5.1) mmol/L Chloride 102 (98-107) mmol/L Carbon Dioxide 19 L (22-32) mmol/L BUN 63 H (7-17) mg/dL Creatinine 4.44 H (0.52-1.04) mg/dL Estimated GFR 10 L (>60) mL/min BUN/Creatinine Ratio 14.2 (6-22) Glucose 103 (80-110) mg/dL Lactate 3.4 H 2.9 H (0.7-2.1) mmol/L Calcium 8.3 L (8.4-10.2) mg/dL Total Bilirubin 1.9 H (0.2-1.3) mg/dL AST 66 H (14-36) IU/L ALT 60 H (<35) IU/L Alkaline Phosphatase 348 H D (38-126) U/L Total Creatine Kinase (30-135) U/L Troponin I 0.178 H* (0.01-0.034) ng/mL NT-Pro-B Natriuret Pep (<125) pg/mL Total Protein 6.7 (6.3-8.2) g/dL Albumin 3.3 L (3.5-5.0) g/dL Globulin 3.4 (1.7-4.1) g/dL Albumin/Globulin Ratio 1.0 (1.0-2.8) Procalcitonin (<0.5) ng/mL Urine RBC (0-5/HPF) Urine WBC (0-5/HPF) Ur Squamous Epith Cells (0-5/HPF) Amorphous Sediment Urine Bacteria (None) Granular Casts (None) Vol Urine Centrifuged A.calcoaceticus-baumannii cmplx PCR (Not Detect) Bacteroides fragilis (Not Detect) Shannan albicans (PCR) (Not Detect) Shannan auris (PCR) (Not Detect) C. glabrata (PCR) (Not Detect) C. krusei (PCR) (Not Detect) C. parapsilosis (PCR) (Not Detect) C. tropicalis (PCR) (Not Detect) SARS-CoV-2 (PCR) (Negative) C. neoform/gattii (PCR) (Not Detect) Enterobacterales (PCR) (Not Detect) E. cloacae complex PCR (Not Detect) Enterococc faecalis PCR (Not Detect) Enterococc faecium PCR (Not Detect) E. coli (PCR) (Not Detect) H. influenzae (PCR) (Not Detect) Influenza A (RT-PCR) (NEGATIVE) Influenza B (RT-PCR) (NEGATIVE) Klebsiella aerogenes (PCR) (Not Detect) Klebsiella oxytoca PCR (Not Detect) Klebsiella pneumoniae (Not Detect) List. monocytogenes PCR (Not Detect) N. meningitidis (PCR) (Not Detect) Proteus species (PCR) (Not Detect) RSV (PCR) (Negative) Salmonella spp. (PCR) (Not Detect) Serratia marcescens PCR (Not Detect) Staphylococcus sp PCR (Not Detect) Staph aureus (PCR) (Not Detect) mecA/C & MREJ Resist Gene (Not Detect) mecA/C-Methicil Resis Gene (Not Detect) mcr-1 Colistin Res Gene PCR (Not Detect) Staph epidermidis (PCR) (Not Detect) Staph lugdunensis PCR (Not Detect) S. maltophilia (PCR) (Not Detect) Streptococcus sp PCR (Not Detect) Group A Strep (PCR) (Not Detect) Strep agalactiae (PCR) (Not Detect) Strep pneumoniae (PCR) (Not Detect) P. aeruginosa (PCR) (Not Detect) Mian/B-Vanco Res Genes (Not Detect) blaIMP Car res Gene PCR (Not Detect) KPC-Carbap Res Gene PCR (Not Detect) blaNDM Car Res Gene PCR (Not Detect) OXA-48 Carbapenem Resis Gene (PCR) (Not Detect) blaVIM Car Res Gene PCR (Not Detect) CTX-M Gene Resistance (PCR) (Not Detect) MDM Narrative Medical decision making narrative: 68-year-old with nontraumatic left flank pain for 2 days, nausea without emesis, also some recent nonbloody loose stools, no trauma. No fever. Denies chest pain shortness of breath. Afebrile on triage. EKG, chest x-ray, labs pending. EKG without obvious ischemic changes, initial troponin 0.19 elevated. None for comparison. Abnormal labs including markedly elevated white blood cell count, elevated troponin, elevated creatinine, no comparison labs here. We will obtain comparison labs from outpatient setting or alternate facility, await comparison studies results. Outside labs review. Copy of labs from [facility], 01/24/2024: white blood cell count 10/24/1999, hemoglobin 14.1, platelets [id number]. Glucose 75, BUN 19, creatinine 0.69, sodium 137, potassium 3.6, chloride 101, serum CO2 25. T bili 1.5, alkaline phosphatase 53, ALT 28, AST 26. Albumin 4.2. Markedly significant change in baseline labs from January 2024 to today. Elevated troponin without chest pain, could be type 2 injury from sepsis/renal failure. Creatinine elevated, we will image noncontrast. CT, chest, abdomen, pelvis noncontrast study ordered. We will need transfer to higher level of care capable facility with Cardiology, Nephrology, Oncology. Patient/ aware. CT head no acute changes. See radiology report. CT chest abdomen and pelvis without contrast. Shows left hydronephrosis and proximal hydroureter secondary to 6 mm ureteral proximal stone. Diverticulosis noted, lobulated appearance of the uterus noted. See radiology report. Repeat troponin 0.17 also elevated. BNP also elevated. Urinalysis suspicious for infection. Blood cultures requested prior, we will hold on IV fluid given markedly elevated BNP and elevated creatinine. IV ceftriaxone antibiotic. Normotensive, afebrile, but markedly elevated white blood cell count and procalcitonin. Discussed CT results with patient/, need higher level of care with Nephrology and Cardiology Services not available here. We will initiate bed search 1914, case discussed with [facility] cardiology Dr. Elizabeth, agrees troponin elevation might represent type 2 injury due to sepsis and/or elevated creatinine/MARILU, no ACS regimen heparin for now, he or a colleague can consult if transferred for Nephrology and other services to their system. Await call back from hospitalist. 1929, case discussed with Urology Dr. Laurent here, in case patient might be a candidate for ureteral stenting if there is prolonged time for transfer. Patient is currently hemodynamically stable, but he is aware of the patient. If patient is here overnight in the emergency department he requests patient be made NPO after midnight, in case stenting needed tomorrow. Await call back from hospitalist Rach Payne. Signed out to Dr. Hernandes 1999 Dr. Hernandes, patient signed out to me by Dr. Kelley. I have seen evaluated patient myself. She overall appears ill and dry. She was slightly tachypneic but clear breath sounds without wheezing rales or rhonchi no peripheral edema. She does have albuterol listed in her medication. We will try some albuterol. I have added Zosyn as a broader spectrum antibiotic. She was getting more tachycardic heart rate now 20s. Repeat lactate pending. Will try a small fluid bolus because she clinically appears dry Patient does have troponins that are positive but agree with probably demand ischemia. However she was becoming more hypoxic can not officially rule out pulmonary embolism, she was started on a heparin drip. May also have congestive heart failure but again she appears dry BNP is significantly elevated at 42,000 two thousand but is likely secondary to renal failure. CT does not show any pulmonary edema or pleural effusions or evidence of pneumonia. Patient monitored progressively getting more and more tachypneic. Tried albuterol no real improvement. Ultimately due to airway protection tachypnea decision made to intubate patient. ABG does not show significant hypoxia. Initially sepsis IV fluids were not given secondary to quite elevated BNP. She has not really put out any urine in his now oliguric. Nurse did flush Kuhn there is lot of sediment it is draining and in proper place. Patient becoming hypotensive tachycardic oliguric. Sepsis fluids ordered Levophed started. Consults: 2044 DR. Jett Hospitalist at [facility], updated patient's symptoms test results accepts patient [id number] ina barboza hospitalist updated on patient's symptoms and test results and accepts patient After patient got intubated patient needed higher level of care facilities were notified of change in status 23:05 Dr. Jose Rafael Flores [facility] hospital director updated patient's symptoms test results reports that significant capacity no bed availability for an unknown amount of time. Agrees with heparin drip until PE completely ruled out with bilateral lower extremity Dopplers and echo [id number] Dr. Michelle Farah, in [place], updated patient's symptoms test results unable to have any sort of IR procedure or stent placed this evening. But they do have a ready available ICU bed Urology Dr. Laurent consulted in regards to need emergent stent placement for septic shock. He agrees to place stent patient will then be transferred back to the ER where patient is accepted at [facility] and bed is available Blood cultures have already returned as Gram-negative bacteremia, faxed to [facility] hospital Critical Care Time <Lana Hernandes, DO - Last Filed: 07/02/24 06:14> Critical Care Time Critical Care Time: Yes Total Critical Care Time: 68 Attestation: The high probability of a clinically significant, sudden or life threatening deterioration of the [cardiovascular] system(s) required my full and direct attention, intervention and personal management. The aggregate critical care time was 68 minutes. This time is in addition to time spent performing reported procedures but includes the following: [x] Data Review and interpretation [x] Patient assessment and monitoring of vital signs [x] Documentation [x] Medication orders and management Discharge Plan Departure Patient Disposition: [facility] Clinical Impression: Left flank pain, Left ureteral stone, Elevated troponin, Septic shock, Hypoxia Acute renal failure Qualifiers: Acute renal failure type: unspecified Qualified Code(s): N17.9 - Acute kidney failure, unspecified Urinary tract infection Qualifiers: Urinary tract infection type: site unspecified Hematuria presence: without hematuria Qualified Code(s): N39.0 - Urinary tract infection, site not specified Prescriptions: No Action albuterol sulfate 1.25 mg/3 mL solution for nebulization 1.25 mg INHALATION QID PRN (Reason: bronchospasm) Qty: 90 1RF ezetimibe 10 mg tablet PO DAILY diazepam 5 mg tablet 2.5 - 10 mg PO Q4H PRN (Reason: muscle spasm) losartan 100 mg tablet 100 mg PO DAILY Ranitidine Hydrochloride (RANITIDINE) Qty: 0 albuterol sulfate [Proventil HFA] 90 MCG/PUFF HFA aerosol inhaler 0 INH Q4-6H Qty: 1 0RF Referrals: Samira Childs PA-C [Primary Care Provider] -
--- NOTE | 2024-07-01 16:02 | EKG_ITS ---
[facility] [address] [place] [id number] Test Date: 2024-07-01 Pat Name: Krista Arce Department: [facility] Room: Gender: Female Video Production Specialist: JYOTI : 1955 Requested By: Order Number: [id number] Reading MD: Bismark Baer MD Measurements Intervals [place] Rate: 101 P: 31 AK: 138 QRS: 16 QRSD: 126 T: -14 QT: 374 QTc: 484 Interpretive Statements Sinus tachycardia Right bundle branch block NO SIGNIFICANT CHANGE FROM PRIOR TRACING Electronically Signed On 07-01-2024 16:57:56 PST by Bismark Baer MD
[2024-07-01 16:08] LABS: NT-proBNP (BNP-Adult 18+) 42800 pg/mL (<125)
[2024-07-01 16:13] LABS: Reflexed Lactate in 2 Hours Y
[2024-07-01 16:15] LABS: Amorphous Sediment Urine 1+; Bacteria Urine Many (>30); Granular Casts Urine 0-1/LPF; RBC Urine 10-30/HPF (0-5/HPF); Squamous Epithelial Cell Urine 0-1 /HPF (0-5/HPF); Urine Volume 10mL (spun); WBC Urine 30-100/HPF (0-5/HPF)
[2024-07-01 16:39] LABS: Troponin I 0.174 ng/mL (0.01-0.034)
--- NOTE | 2024-07-01 16:39 | ED.CALLS ---
Dr Kelley notified of critical result. Troponin 0.174
[2024-07-01] MEDS: cefTRIAXone 1,000 MG in SODIUM CHLORIDE 0.9% 100 ML 200 MG IV (17:34)
--- NOTE | 2024-07-01 19:34 | PC.NURSE ---
Pt HR increasing to 127, BP 187/85. Work of breathing is getting harder. Pt has retractions and is abdominal breathing and using accessory muscles to breath. RT called. Dr Hernandes aware. Periwick placed for comfort.
[2024-07-01] MEDS: HEPARIN 5,000 UNIT/ML VIAL 6000 UNIT IV (20:23)
[2024-07-01] MEDS: PIPERACILLIN/TAZO 4.5 GM in SODIUM CHLORIDE 0.9% 100 ML IV (20:24)
[2024-07-01] MEDS: HEPARIN DRIP 25,000 UNIT/500 ML IV.SOLN 18.507 UNIT IV (20:25)
[2024-07-01 21:08] LABS: Lactate (Lactic Acid) 3.2 mmol/L (0.7-2.1)
--- NOTE | 2024-07-01 21:30 | PC.NURSE ---
2130 report received pt awake, lethargic, restless, not tolerating the hi-flow O2, increased work of breathing noted, pt moved to Rm 2 to try Bipap. 2145 Bipap applied to pt, pt continues with an increased work of breathing, tachypnea not improving, pt tachycardia in the 120s and hypotensive 80's/50's Dr Hernandes in the room to discuss intubation with . 2250 preparing for intubation. 2253 pt intubation (see nurses note). 2300 IJ triple lumen placed in pt's right IJ per Dr Hernandes. pt tolerated procedures, and medications started as ordered. 2315-catheter irrigated with 60 ml NS with yellow urine with sediment noted returned. [address] Hernandes in to speak with family. 0000 Dr Laurent in to speak with regarding surgery. 0015 surgery crew here, report given and pt transferred to surgery per stretcher. 0111 pt received from surgery.
[2024-07-01] MEDS: ALBUTEROL 2.5 MG/3 ML NEB (ADULT) INH (21:47)
[2024-07-01 22:23] LABS: Reflexed Lactate in 2 Hours Y
[2024-07-01] MEDS: FUROSEMIDE 40 MG/4 ML VIAL IV (22:25)
[2024-07-01 22:40] LABS: Influenza A - CEPHEID Flu A NEGATIVE (NEGATIVE); Influenza B - CEPHEID Flu B NEGATIVE (NEGATIVE); Respiratory Syncytial Virus Negative (Negative)
[2024-07-01 22:44] LABS: COVID-19 CEPHEID 4-PLEX PCR Negative (Negative)
--- NOTE | 2024-07-01 22:53 | PC.NURSE ---
pt intubated with 7.[address] Hernandes and secured 26cm at the teeth and placed on the vent per RT BBS + and no epigastric sounds and confirmed with CO2 color change and CXR
[2024-07-01] MEDS: KETAMINE 500 MG/5 ML INJ 150 MG IV (22:57)
[2024-07-01] MEDS: NOREPINEPHRINE BITARTRATE/D5W 4 MG/250 ML PLAST..BAG 28.917 MG IV (22:57)
[2024-07-01] MEDS: ROCURONIUM 50 MG/5 ML INJ 46 MG IV (22:58)
[2024-07-01 23:16] LABS: Allen Test for ABG Passed? Positive; Base Excess ABG -5.6 mmol/L (-2-3); Delivery System Adult Ventilator; HCO3 ABG 22 mmol/L (23-27); Oxygen Saturation ABG 97 % (95-100); PCO2 ABG 47.8 mmHg (35-45); PEEP 5; PO2 ABG 109 mmHg (80-100); Respiratory Rate 16; TCO2 ABG 21 mmol/L (23-27); pH ABG 7.26 (7.35-7.45)
--- NOTE | 2024-07-01 23:23 | DI.RAD.S_ITS ---
PROCEDURE: XR CHEST 1V INDICATIONS: post procedure TECHNIQUE: One view of the chest was acquired. COMPARISON: [facility], CT, CT CHEST ABD PEL WO CON, 07/01/2024, 15:40. FINDINGS AND IMPRESSION: ET tube tip projects over lower trachea. Right central line tip projects over lower SVC. Mildly prominent pulmonary interstitium, possibly edema or atypical infection, and low lung volumes. Lower lung atelectasis also seen. Heart size is at the upper limit of normal. Elevation of the right hemidiaphragm. Degenerative osseous changes. Dictated by: Santiago Hudson M.D. on 07/02/2024 at 0:04 Approved by: Santiago Hudson M.D. on 07/02/2024 at 0:05
[2024-07-01] MEDS: propofoL 1,000 MG/100 ML VIAL 2.313 MG IV (23:51)
[2024-07-01] MEDS: SODIUM CHLORIDE 0.9% 2,313.33 ML 771.11 ML IV (23:51)
[2024-07-01 23:59] LABS: Hematocrit 38.8 % (36-46); Hemoglobin 12.6 g/dL (12.0-16.0); Mean Corpuscular HGB Conc 32.6 % (30-36); Mean Corpuscular Hemoglobin 29.5 PG (26-34); Mean Corpuscular Volume 90.6 fL (80-100); Platelet Count 160 X10^3/uL (150-400); Red Blood Cell Count 4.28 X10^6/uL (4.0-5.2); Red Cell Distribution Width 15.2 % (11.6-14.8)
[2024-07-02] VITALS (13 sets, daily range): BP systolic 98–188; BP diastolic 51–85; PULSE 110–129; RESP 16–23; O2SAT 91–98
--- NOTE | 2024-07-02 | DI.RAD.S_ITS ---
PROCEDURE: XR ABDOMEN 1V INDICATIONS: Cystoscopy TECHNIQUE: One view of the abdomen acquired. COMPARISON: [facility], CT, CT CHEST ABD PEL WO CON, 07/01/2024, 15:40. FINDINGS AND IMPRESSION: Fluoroscopic images were obtained for urologic procedure. A left ureteral stent is in place. Please see operative note for full details. Dictated by: Santiago Hudson M.D. on 07/02/2024 at 1:38 Approved by: Santiago Hudson M.D. on 07/02/2024 at 1:39
[2024-07-02 00:01] LABS: Alanine Aminotransferase 60 IU/L (<35); Albumin 3.3 g/dL (3.5-5.0); Alkaline Phosphatase 348 U/L (38-126); Aspartate Aminotransferase 66 IU/L (14-36); BUN Creatinine Ratio 14.2 (6-22); Bilirubin Total 1.9 mg/dL (0.2-1.3); Blood Urea Nitrogen 63 mg/dL (7-17); Calcium 8.3 mg/dL (8.4-10.2); Carbon Dioxide 19 mmol/L (22-32); Chloride 102 mmol/L (98-107); Estimated Glomerular Filt Rate 10 mL/min (>60); Globulin 3.4 g/dL (1.7-4.1); Glucose 103 mg/dL (80-110); HEMOLYSIS < 15 (0-50); Lactate (Lactic Acid) 3.4 mmol/L (0.7-2.1); Potassium 3.7 mmol/L (3.4-5.1); Sodium 137 mmol/L (137-145); Total Protein 6.7 g/dL (6.3-8.2)
[2024-07-02 00:02] LABS: Add Manual Diff / Slide Review YES
[2024-07-02 00:04] LABS: White Blood Cell Count 30.3 X10^3/uL (4.5-11.0)
[2024-07-02 00:16] LABS: Troponin I 0.178 ng/mL (0.01-0.034)
--- NOTE | 2024-07-02 00:19 | PM.CN.IH.1 ---
History of Present Illness Consult details Date Patient Seen: 07/02/24 Time Patient Seen: 00:19 Chief complaint: V/D, dizzy, flu like symptoms, sent by [facility] Reason for consult: Left ureteral stone, concern for UTI Narrative: 68 y/o F noted to have left flank pain for the past few days in addition to nausea, diarrhea, lethargy and poor PO intake. By the time of my consultation, she was intubated and sedated, the history was obtained from her . They believed that she had been battling the flu over the last few days, he brought her into the [facility] this morning for evaluation and they were instructed to come to the ER. Her work-up is notable for a WBC of 30.3, sCr of 4.0, Troponin of 0.178 and a UA concerning for a UTI. Her NCCT Abd/Pel noted a 6mm left proximal ureterolith w/ resultant upstream mild hydroureteronephrosis (no other uroliths were appreciated). Urology was consulted regarding her aforementioned ureteral stone in the setting of a UTI and acute renal failure. Meds Home Medications and Allergies Home Medications Medication Instructions Recorded Confirmed Type Ranitidine Hydrochloride ##0 03/24/12 07/01/24 History (RANITIDINE) albuterol sulfate 90 mcg/actuation 0 INH Q4-6H #1 unit 03/24/12 07/01/24 Rx aerosol inhaler (Proventil HFA) albuterol sulfate 1.25 mg/3 mL 1.25 mg (3 mL) inhalation QID PRN 05/13/18 07/01/24 Rx solution for nebulization bronchospasm #90 mL diazepam 5 mg tablet 2.5 - 10 mg PO Q4H PRN muscle spasm 07/01/24 07/01/24 History ezetimibe 10 mg tablet mg PO DAILY 07/01/24 07/01/24 History losartan 100 mg tablet 100 mg PO DAILY 07/01/24 07/01/24 History Allergies Allergy/AdvReac Type Severity Reaction Status Date / Time No Known Drug Allergies Allergy Verified 07/01/24 15:21 Review of Systems Review of Systems Narrative: Unable to review ROS secondary to her status as intubated and sedated. Exam Vital Signs (past 8 hours): - 07/01/24 16:30 07/01/24 16:30 07/01/24 17:00 Pulse Rate 101 H 101 H Respiratory Rate 26 H 29 H Blood Pressure 135/80 Pulse Oximetry 94 93 Oxygen Delivery Method Fraction of Inspired Oxygen 07/01/24 17:00 07/01/24 17:30 07/01/24 17:30 Pulse Rate 104 H Respiratory Rate 31 H Blood Pressure 136/64 136/78 Pulse Oximetry 94 Oxygen Delivery Method Fraction of Inspired Oxygen 07/01/24 18:00 07/01/24 18:00 07/01/24 18:30 Pulse Rate 101 H Respiratory Rate 33 H Blood Pressure 138/94 H 148/80 H Pulse Oximetry 94 Oxygen Delivery Method Fraction of Inspired Oxygen 07/01/24 18:30 07/01/24 19:00 07/01/24 19:15 Pulse Rate 106 H 118 H 119 H Respiratory Rate 46 H 36 H 34 H Blood Pressure Pulse Oximetry 96 88 L Oxygen Delivery Method Fraction of Inspired Oxygen 07/01/24 19:15 07/01/24 19:30 07/01/24 19:39 Pulse Rate 127 H 111 H Respiratory Rate 47 H 22 Blood Pressure 180/87 H Pulse Oximetry 92 Oxygen Delivery Method Room Air Fraction of Inspired Oxygen 07/01/24 20:00 07/01/24 20:00 07/01/24 20:30 Pulse Rate 124 H 126 H Respiratory Rate 47 H 44 H Blood Pressure 170/97 H Pulse Oximetry 94 Oxygen Delivery Method Fraction of Inspired Oxygen 07/01/24 21:00 07/01/24 21:30 07/01/24 21:30 Pulse Rate 126 H 124 H Respiratory Rate 71 H 36 H Blood Pressure 147/81 H Pulse Oximetry 91 Oxygen Delivery Method Fraction of Inspired Oxygen 07/01/24 22:00 07/01/24 22:18 07/01/24 22:18 Pulse Rate 120 H 119 H Respiratory Rate 49 H 64 H Blood Pressure 92/60 Pulse Oximetry 93 94 Oxygen Delivery Method Fraction of Inspired Oxygen 07/01/24 22:30 07/01/24 22:30 07/01/24 22:36 Pulse Rate 119 H 118 H Respiratory Rate 33 H 34 H Blood Pressure 89/61 L Pulse Oximetry 92 93 Oxygen Delivery Method Fraction of Inspired Oxygen 07/01/24 22:36 07/01/24 22:48 07/01/24 22:48 Pulse Rate 116 H Respiratory Rate 30 H Blood Pressure 85/50 L 86/53 L Pulse Oximetry 92 Oxygen Delivery Method Fraction of Inspired Oxygen 07/01/24 22:53 07/01/24 22:53 07/01/24 22:53 Pulse Rate 112 H 116 H Respiratory Rate 16 29 H Blood Pressure 88/50 L Pulse Oximetry 92 Oxygen Delivery Method Fraction of Inspired Oxygen 07/01/24 23:00 07/01/24 23:00 07/01/24 23:30 Pulse Rate 100 H 125 H Respiratory Rate 16 16 Blood Pressure 93/57 L Pulse Oximetry 97 95 Oxygen Delivery Method Fraction of Inspired Oxygen 07/01/24 23:30 07/01/24 23:40 07/01/24 23:40 Pulse Rate 130 H Respiratory Rate 16 Blood Pressure 198/95 H 214/98 H Pulse Oximetry 95 Oxygen Delivery Method Fraction of Inspired Oxygen 07/01/24 23:46 07/01/24 23:50 07/01/24 23:50 Pulse Rate 132 H Respiratory Rate 16 Blood Pressure 196/82 H Pulse Oximetry 95 Oxygen Delivery Method Fraction of Inspired Oxygen 60 07/02/24 00:00 07/02/24 00:00 Pulse Rate 129 H Respiratory Rate 16 Blood Pressure 188/85 H Pulse Oximetry 95 Oxygen Delivery Method Fraction of Inspired Oxygen Fraction of Inspired Oxygen 60 Oxygen Delivery Method Room Air Narrative Exam Narrative: GEN: Intubated and sedated. Limited physical exam performed secondary to her status as intubated and sedated and emergent need for ureteral stent placement prior to transfer to higher echelon of care. Objective Labs 07/01/24 23:40 07/01/24 23:40 Labs: Laboratory Results - last 24 hr 07/01/24 07/01/24 07/01/24 13:15 13:40 13:46 WBC 30.4 H* RBC 4.43 Hgb 13.1 Hct 39.7 MCV 89.7 MCH 29.5 MCHC 32.9 RDW 14.9 H Plt Count 224 Neut % (Auto) Not Reportable Lymph % (Auto) Not Reportable [place] % (Auto) Not Reportable Eos % (Auto) Not Reportable Baso % (Auto) Not Reportable Lymph # (Auto) Not Reportable [place] # (Auto) Not Reportable Baso # (Auto) Not Reportable Total Counted 100 Seg Neutrophils % 63.0 Band Neutrophils % 32.0 H Lymphocytes % (Manual) 2.0 L Monocytes % (Manual) 1.0 L Metamyelocytes % 2.0 H Neutrophils # (Manual) 05586 H RBC Morphology See below Anisocytosis 1+ H ABG pH ABG pCO2 ABG pO2 ABG HCO3 ABG Total CO2 ABG O2 Saturation ABG Base Excess Madi Test Respiration Rate O2 Delivery Device FiO2 % PEEP or CPAP Sodium 134 L Potassium 4.1 Chloride 97 L Carbon Dioxide 21 L BUN 58 H Creatinine 4.28 H Estimated GFR 11 L BUN/Creatinine Ratio 13.6 Glucose 107 Lactate 3.2 H Calcium 8.8 Total Bilirubin 1.8 H AST 80 H ALT 72 H Alkaline Phosphatase 197 H Total Creatine Kinase 104 Troponin I 0.190 H* NT-Pro-B Natriuret Pep 82504 H Total Protein 7.3 Albumin 3.8 Globulin 3.5 Albumin/Globulin Ratio 1.1 Procalcitonin 126 H Urine RBC 10-30/hpf H Urine WBC 30-100/hpf H Ur Squamous Epith Cells 0-1 /hpf Amorphous Sediment 1+ Urine Bacteria Many (>30) H Granular Casts 0-1/lpf Vol Urine Centrifuged 10ml (spun) SARS-CoV-2 (PCR) Influenza A (RT-PCR) Influenza B (RT-PCR) RSV (PCR) 07/01/24 07/01/24 07/01/24 16:00 16:57 20:36 WBC RBC Hgb Hct MCV MCH MCHC RDW Plt Count Neut % (Auto) Lymph % (Auto) [place] % (Auto) Eos % (Auto) Baso % (Auto) Lymph # (Auto) [place] # (Auto) Baso # (Auto) Total Counted Seg Neutrophils % Band Neutrophils % Lymphocytes % (Manual) Monocytes % (Manual) Metamyelocytes % Neutrophils # (Manual) RBC Morphology Anisocytosis ABG pH ABG pCO2 ABG pO2 ABG HCO3 ABG Total CO2 ABG O2 Saturation ABG Base Excess Madi Test Respiration Rate O2 Delivery Device FiO2 % PEEP or CPAP Sodium Potassium Chloride Carbon Dioxide BUN Creatinine Estimated GFR BUN/Creatinine Ratio Glucose Lactate 2.0 3.2 H Calcium Total Bilirubin AST ALT Alkaline Phosphatase Total Creatine Kinase Troponin I 0.174 H* NT-Pro-B Natriuret Pep Total Protein Albumin Globulin Albumin/Globulin Ratio Procalcitonin Urine RBC Urine WBC Ur Squamous Epith Cells Amorphous Sediment Urine Bacteria Granular Casts Vol Urine Centrifuged SARS-CoV-2 (PCR) Influenza A (RT-PCR) Influenza B (RT-PCR) RSV (PCR) 07/01/24 07/01/24 07/01/24 21:58 22:40 23:10 WBC RBC Hgb Hct MCV MCH MCHC RDW Plt Count Neut % (Auto) Lymph % (Auto) [place] % (Auto) Eos % (Auto) Baso % (Auto) Lymph # (Auto) [place] # (Auto) Baso # (Auto) Total Counted Seg Neutrophils % Band Neutrophils % Lymphocytes % (Manual) Monocytes % (Manual) Metamyelocytes % Neutrophils # (Manual) RBC Morphology Anisocytosis ABG pH 7.26 L* ABG pCO2 47.8 H ABG pO2 109 H ABG HCO3 22 L ABG Total CO2 21 L ABG O2 Saturation 97 ABG Base Excess -5.6 L Madi Test Positive Respiration Rate 16 O2 Delivery Device Adult ventilator FiO2 % 60.0 % PEEP or CPAP 5 Sodium Potassium Chloride Carbon Dioxide BUN Creatinine Estimated GFR BUN/Creatinine Ratio Glucose Lactate 4.0 H Calcium Total Bilirubin AST ALT Alkaline Phosphatase Total Creatine Kinase Troponin I NT-Pro-B Natriuret Pep Total Protein Albumin Globulin Albumin/Globulin Ratio Procalcitonin Urine RBC Urine WBC Ur Squamous Epith Cells Amorphous Sediment Urine Bacteria Granular Casts Vol Urine Centrifuged SARS-CoV-2 (PCR) Negative Influenza A (RT-PCR) Flu a negative Influenza B (RT-PCR) Flu b negative RSV (PCR) Negative 07/01/24 23:40 WBC 30.3 H* RBC 4.28 Hgb 12.6 Hct 38.8 MCV 90.6 MCH 29.5 MCHC 32.6 RDW 15.2 H Plt Count 160 Neut % (Auto) Not Reportable Lymph % (Auto) Not Reportable [place] % (Auto) Not Reportable Eos % (Auto) Not Reportable Baso % (Auto) Not Reportable Lymph # (Auto) Not Reportable [place] # (Auto) Not Reportable Baso # (Auto) Not Reportable Total Counted Seg Neutrophils % Band Neutrophils % Lymphocytes % (Manual) Monocytes % (Manual) Metamyelocytes % Neutrophils # (Manual) RBC Morphology Anisocytosis ABG pH ABG pCO2 ABG pO2 ABG HCO3 ABG Total CO2 ABG O2 Saturation ABG Base Excess Madi Test Respiration Rate O2 Delivery Device FiO2 % PEEP or CPAP Sodium 137 Potassium 3.7 Chloride 102 Carbon Dioxide 19 L BUN 63 H Creatinine 4.44 H Estimated GFR 10 L BUN/Creatinine Ratio 14.2 Glucose 103 Lactate 3.4 H Calcium 8.3 L Total Bilirubin 1.9 H AST 66 H ALT 60 H Alkaline Phosphatase 348 H D Total Creatine Kinase Troponin I 0.178 H* NT-Pro-B Natriuret Pep Total Protein 6.7 Albumin 3.3 L Globulin 3.4 Albumin/Globulin Ratio 1.0 Procalcitonin Urine RBC Urine WBC Ur Squamous Epith Cells Amorphous Sediment Urine Bacteria Granular Casts Vol Urine Centrifuged SARS-CoV-2 (PCR) Influenza A (RT-PCR) Influenza B (RT-PCR) RSV (PCR) [facility] Tobacco & Substance Use Smoking Status: Former smoker Assessment & Plan Assessment and plan (1) Left ureteral stone: Status: Acute Plan: 68 y/o F w/ new onset acute renal failure and a 6mm left proximal ureterolith in the setting of a concern for a UTI. Discussed at length with her that I am not certain that this obstructing left ureteral stone is the sole cause of her symptoms as her right kidney does not demonstrate any signs of obstruction (hydronephrosis) and should be able to compensate for an obstructing left renal collecting system. Discussed the need for an emergent left ureteral stent placement in the setting of a left ureterolith and active UTI that has led to clinical deterioration and need for intubation and sedation in the ER. Discussed risks of the procedure to include pain, bleeding, infection, injury to urethra/bladder/ureter, inability to access the ureter requiring discussion with Interventional Radiology regarding a possible ureteral stent placement in an antegrade fashion vs a possible nephroureteral stent and/or percutaneous nephrostomy tube, urinary tract infection, need for emergent open repair of bladder and/or ureter. Discussed that she would still require definitive stone treatment at a later date. Informed consent was obtained by her . (2) Urinary tract infection: Qualifiers: Urinary tract infection type: site unspecified Hematuria presence: without hematuria Qualified Code(s): N39.0 - Urinary tract infection, site not specified Status: Acute Plan: Please see plan above under left ureteral stone. (3) Acute renal failure: Qualifiers: Acute renal failure type: unspecified Qualified Code(s): N17.9 - Acute kidney failure, unspecified Status: Acute Plan: Please see plan above under left ureteral stone. Time-Based Coding :: [TOTAL MINUTES] spent with patient and on the chart (including review of chart, obtaining history, exam, reviewing outside data, placing orders, documenting exam and treatment plan, and counseling patient) on [DATE]. PROFEE Charge Codes Inpatient or Observation consultation: 12685
[2024-07-02 00:24] LABS: Anisocytosis 1+; Burr Cells 1+; Neutrophils Absolute Manual 28179 /uL (3000-5900); Platelet Estimate Adequate on smear; Total Cells Counted 100
--- NOTE | 2024-07-02 00:34 | PC.NURSE ---
report given to OR crew, pt to go to surgery then return for transfer [facility]
--- NOTE | 2024-07-02 00:45 | PC.NURSE ---
pt to surgery
[2024-07-02] MEDS: iopamidoL 30 ML VIAL 5 ML INTRA-ARTI (00:56)
--- NOTE | 2024-07-02 00:57 | SUR.OPER ---
Lithotomy on padded OR bed, head on pillow, arms secured on padded arm boards at <90 degrees abduction. Legs secured in padded yellow fins stirrups.
--- NOTE | 2024-07-02 01:03 | PM.OP.1 ---
Procedure & Clinicians Procedure: Cystoscopy Left retrograde ureteropyelogram Left ureteral stent placement Same procedure as scheduled: Yes Indications: 68 y/o F w/ new onset acute renal failure and a 6mm left proximal ureterolith in the setting of a concern for a UTI. Discussed at length with her that I am not certain that this obstructing left ureteral stone is the sole cause of her symptoms as her right kidney does not demonstrate any signs of obstruction (hydronephrosis) and should be able to compensate for an obstructing left renal collecting system. Discussed the need for an emergent left ureteral stent placement in the setting of a left ureterolith and active UTI that has led to clinical deterioration and need for intubation and sedation in the ER Surgeon: Hakeem Laurent Click Yes if Unassisted: Yes Anesthesia Type: General Operative Notes Findings: Left mild hydronephrosis Closure Type: not applicable Specimen(s): none sent Estimated Blood Loss (mL): 2 Blood products transfused: none Procedure in detail: Patient was identified in the ER department and informed consent was obtained from her (she was intubated and sedated at the time of evaluation). She was then transferred to the operating room and transferred to the operating room table. She was then placed in the low lithotomy position. She was then prepped and draped in the usual sterile fashion. A surgical timeout was conducted and all were in agreement. Access to the bladder was obtained via a 21Fr cystoscope.? Complete cystoscopy was performed and no concerning masses or lesions were noted. Bilateral ureteral orifices were easily identified and noted to be orthotopic in nature.? The left ureteral orifice was easily visualized and a 0.035 sensor tip ureteral guidewire was advanced through the 5Fr ureteral catheter and into the left renal collecting system.? The ureteral guidewire was removed and a retrograde pyelogram was performed which noted mild left hydronephrosis.? The ureteral guidewire was readvanced through the ureteral catheter and into the left renal pelvis.? The ureteral catheter was then removed.? A 6Fr multi-length JJ ureteral stent without strings was then advanced over the ureteral guidewire and into the left renal collecting system.? Upon removal of the ureteral guidewire, a good curl was appreciated within the left renal pelvis upon fluoroscopy and visually within the bladder.? The bladder was then drained and the cystoscope was removed.? A 16Fr fernandes catheter was then inserted and 10cc of sterile water was utilized for balloon insufflation. She was then transferred back to the ER intubated and sedated for transfer to a higher echelon of care. Complications: none Post-operative Condition: stable Disposition: other (transfer to another facility with Cardiology and Nephrology capabilities) Plan for aftercare: Will need definitive stone management following management of her current clinical picture via a cystoscopy, left ureteroscopy, laser lithotripsy and left ureteral stent exchange.
--- NOTE | 2024-07-02 01:11 | PC.NURSE ---
received from the OR, pt continues intubated, with Propofol infusing at 25mg/kg/mn, Levophed infusin at 0.1mcg/kg/mn, and NS infusing at 250 ml/hr. pt placed on the vent settings per RT, pt's at bedside.
[2024-07-02 01:21] LABS: Reflexed Lactate in 2 Hours Y
[2024-07-02 01:47] LABS: Lactate 2HR (Lactic Acid Rflx) 2.9 mmol/L (0.7-2.1)
[2024-07-02] MEDS: PIPERACILLIN/TAZO 3.375 GM in SODIUM CHLORIDE 0.9% 100 ML IV (01:54)
--- NOTE | 2024-07-02 02:15 | PC.NURSE ---
all infusions continued per [facility] upon departure
[2024-07-02 05:09] LABS: Acinetobacter calcoa-baumannii Not Detected (Not Detect); Bacteroides fragilis Not Detected (Not Detect); CTX-M Resistance Not Detected (Not Detect); Candida albicans Not Detected (Not Detect); Candida auris Not Detected (Not Detect); Candida glabrata Not Detected (Not Detect); Candida krusei Not Detected (Not Detect); Candida parapsilosis Not Detected (Not Detect); Candida tropicalis Not Detected (Not Detect); Cryptococcus neoformans/gatti Not Detected (Not Detect); Enterobacter cloacae complex Not Detected (Not Detect); Enterobacterales Detected (Not Detect); Enterococcus faecalis Not Detected (Not Detect); Enterococcus faecium Not Detected (Not Detect); Haemophilus influenzae Not Detected (Not Detect); IMP Resistance Not Detected (Not Detect); KPC Resistance Not Detected (Not Detect); Klebsiella aerogenes Not Detected (Not Detect); Listeria monocytogenes Not Detected (Not Detect); NDM Resistance Not Detected (Not Detect); Neisseria meningitidis Not Detected (Not Detect); OXA-48-like Resistance Not Detected (Not Detect); Proteus species Not Detected (Not Detect); Pseudomonas aeruginosa Not Detected (Not Detect); Salmonella species Not Detected (Not Detect); Serratia marcescens Not Detected (Not Detect); Staphylococcus epidermidis Not Detected (Not Detect); Staphylococcus lugdunensis Not Detected (Not Detect); Staphylococcus species Not Detected (Not Detect); Stenotrophomonas maltophilia Not Detected (Not Detect); Streptococcus agalactiae (Gr B Not Detected (Not Detect); Streptococcus pneumonia Not Detected (Not Detect); Streptococcus pyogenes (Gr A) Not Detected (Not Detect); Streptococcus species Not Detected (Not Detect); VIM Resistance Not Detected (Not Detect); mcr-1 Resistance Not Detected (Not Detect)
[2024-07-03 00:50] LABS: Blood Gas Collection Site Right Radial
== END 2024-07-02 02:25 | disposition short-term general hospital (02) ==
PROVIDERS: Emergency Medicine; Urology; Emergency Provider Emergency Medicine; Family Provider Internal Medicine; PCP Physician Assistant
DX: N20.1 Calculus of ureter (principal); N39.0 Urinary tract infection, site not specified; N17.9 Acute kidney failure, unspecified; R65.21 Severe sepsis with septic shock; A41.9 Sepsis, unspecified organism; R11.0 Nausea; Z87.891 Personal history of nicotine dependence; R79.89 Other specified abnormal findings of blood chemistry; R09.02 Hypoxemia
CPT/HCPCS: 0241U; 31500; 36415; 36569; 36600; 70450; 71045; 71250; 74018; 74176; 76000; 80053; 81015; 82550; 82805; 83605; 83880; 84145; 84484; 85007; 85025; 87040; 87077; 87086; 87154; 87186; 93005; 93010; 94002; 94799; 96361; 96365; 96366; 96367; 96368; 96375; 99152; 99153; 99284; 99291; 99292; C2617; J0696; J1644; J1940; J2405; J2543; J2704; J7613; Q9967

== ENCOUNTER → 2024-07-10 12:45 | Outpatient (CLI) | payer MEDICARE, OTHER, SELFPAY ==
[2024-07-02 01:48] VITALS: PULSE 110; RESP 18; O2SAT 92
--- NOTE | 2024-07-10 12:47 | DI.US.S_ITS ---
PROCEDURE: US ABDOMEN LIMITED INDICATIONS: POST -PRANDIAL EPIGASTRIC PAIN/ELEVATED LIPASE TECHNIQUE: Real-time scanning was performed of the abdominal and retroperitoneal organs, with image documentation. COMPARISON: None. FINDINGS: Liver: Liver is at the upper limits of normal in size measuring 16.8 cm. Liver is increased in echogenicity. Gallbladder: No gallstones. No wall thickening. No pericholecystic edema. Negative sonographic Lomeli's sign. 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 Biliary ducts: Intrahepatic bile ducts are non-dilated. Extrahepatic bile duct caliber measures 4.1 mm. Normal is 6-7 mm or less in diameter, or 10 mm or less post-cholecystectomy. Pancreas: Visualized portions of the pancreas are sonographically normal. Tail is not well seen. Miscellaneous: No free abdominal fluid. IMPRESSION: 1. No acute findings. 2. Liver is upper limits of normal in size and increased in echogenicity, most consistent with hepatic steatosis. 3. No gallstones or gallbladder wall thickening. Dictated by: Juve Salinas M.D. on 07/10/2024 at 13:45 Approved by: Juve Salinas M.D. on 07/10/2024 at 13:46
== END ==
PROVIDERS: Family Provider Internal Medicine; PCP Family Medicine; Referring Provider Family Medicine; Visit Provider Family Medicine
DX: R74.8 Abnormal levels of other serum enzymes (principal); R10.13 Epigastric pain
CPT/HCPCS: 76705

== ENCOUNTER → 2024-07-12 14:05 | Outpatient (CLI) | payer MEDICARE, OTHER, SELFPAY ==
[2024-07-02 01:48] VITALS: PULSE 110; RESP 18; O2SAT 92
--- NOTE | 2024-07-12 14:06 | DI.MRI.S_ITS ---
PROCEDURE: MR AB PANCREATIC/MRCP PROTOCOL INDICATIONS: INCREASED SERUM LIPASE LEVEL TECHNIQUE: Coronal HASTE through the abdomen, axial 2-D FLASH in- and [id number], and breath-hold T2 FSE with fat saturation through the biliary system and pancreas. Oblique coronal and axial thin-slice HASTE, radial thick-slab HASTE centered on the extrahepatic bile ducts. Intravenous secretin: Not requested. [facility], CT, CT CHEST ABD PEL WO CON, 07/01/2024, 15:40. ON: FINDINGS: Image quality: Diagnostic. Gallbladder: No gallstones or wall thickening. Biliary ducts: No biliary dilation. Pancreas: No ductal dilation. Prominent accessory duct versus pancreatic divisum. Very mild T2 hyperintense signal within the pancreatic parenchyma. Homogeneous enhancement of the pancreas. OTHER: Lung bases: Elevated right hemidiaphragm. Liver: Mild signal dropout on the out of phase sequence, consistent with mild hepatic steatosis. Spleen: Size is within normal limits. Adrenal Glands: No adrenal nodules. Kidneys and Ureters: No hydronephrosis. No solid mass. No complex renal cystic lesion which requires follow up. There is mild edema within the left renal pelvis. Symmetric enhancement of the kidneys. Stomach and Bowel: Normal colonic caliber, without significant wall thickening. Peritoneum: No abnormal intraperitoneal fluid. No free air. Ventral Wall: No hernia. Abdominal Nodes: No retroperitoneal or mesenteric adenopathy by size criteria. Vessels: Aorta and inferior vena cava are normal in size. No splenic vein thrombosis. Bones: No aggressive osseous abnormality. IMPRESSION: Suspected mild acute interstitial pancreatitis. No acute peripancreatic collection. No vascular complication. No gallstones or choledocholithiasis. Mild edematous changes in the left renal pelvis, likely a sequela of recent stone. 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 This is unchanged from prior. Findings discussed with Dr. Perez at time of dictation. Dictated by: Rashi Hood M.D. on 07/12/2024 at 17:06 Approved by: Rashi Hood M.D. on 07/12/2024 at 17:12
== END ==
PROVIDERS: Family Provider Internal Medicine; PCP Family Medicine; Referring Provider Family Medicine; Visit Provider Family Medicine
DX: R74.8 Abnormal levels of other serum enzymes (principal)
CPT/HCPCS: 74183; A9579

== ENCOUNTER → 2024-07-23 14:19 | Outpatient (CLI) | payer MEDICARE, OTHER, SELFPAY ==
[2024-07-02 01:48] VITALS: PULSE 110; RESP 18; O2SAT 92
== END ==
PROVIDERS: Family Provider Internal Medicine; PCP Family Medicine; Visit Provider Urology
DX: N20.1 Calculus of ureter (principal); R39.9 Unspecified symptoms and signs involving the genitourinary system
CPT/HCPCS: 87077; 87086; 87186

== ENCOUNTER 2024-08-02 11:49 | Day surgery (SDC) | payer MEDICARE, OTHER, SELFPAY ==
[2024-07-02 01:48] VITALS: PULSE 110; RESP 18; O2SAT 92
[2024-07-26 10:12] VITALS: BMI 25.8
[2024-08-02] VITALS (9 sets, daily range): BP systolic 130–152; BP diastolic 64–92; PULSE 82–95; RESP 15–20; TEMP 36.3–36.9; O2SAT 92–95; BMI 27.4
--- NOTE | 2024-08-02 | DI.RAD.S_ITS ---
PROCEDURE: XR ABDOMEN 1V INDICATIONS: CYSTOSCOPY TECHNIQUE: 3 intra-operative images acquired by the Urology service. COMPARISON: [facility], CR, XR ABDOMEN 1V, 07/02/2024, 0:59. FINDINGS: There is opacification of the mildly dilated left renal collecting system. A left ureteral stent is noted in satisfactory position. IMPRESSION: Satisfactory positioning of left ureteral stent and partial opacification of the left renal collecting system. Dictated by: Adrián Verdin M.D. on 08/03/2024 at 12:08 Approved by: Adrián Verdin M.D. on 08/03/2024 at 12:09
[2024-08-02] MEDS: LACTATED RINGERS 1,000 ML 42 ML IV (13:23)
[2024-08-02] MEDS: ACETAMINOPHEN 325 MG TABLET 975 MG PO (13:27)
[2024-08-02] MEDS: FAMOTIDINE 20 MG/2 ML VIAL IV (13:27)
[2024-08-02] MEDS: ONDANSETRON 4 MG/2 ML INJ IV (14:13)
--- NOTE | 2024-08-02 14:25 | PM.PREOP ---
Pre-operative Note COVID-19 COVID-19 status: Not tested Interval Note History & Physical reviewed/Exam performed by Physician: Yes Changes to H&P: No
[2024-08-02] MEDS: CIPROFLOXACIN 400 MG/200 ML PIGGYBACK 200 MG IV (15:15)
--- NOTE | 2024-08-02 15:31 | SUR.OPER ---
Lithotomy on padded OR bed, head on pillow, arms secured on padded arm boards at <90 degrees abduction. Legs secured in padded yellow fins stirrups.
[2024-08-02] MEDS: iopamidoL 30 ML VIAL INJ (15:55)
--- NOTE | 2024-08-02 16:26 | PM.OP.1 ---
Procedure & Clinicians Procedure: Cystoscopy Left ureteroscopy, basket stone extraction Left retrograde ureteropyelogram Left ureteral stent exchange Intraoperative interpretation of fluoroscopic images, total time < 1 hour Same procedure as scheduled: Yes Indications: 69 y/o F noted to have a 6mm left proximal ureterolith w/ resultant upstream mild hydroureteronephrosis in the setting of a UTI, ultimately diagnosed w/ septic shock, who is now s/p a cystoscopy w/ left ureteral stent placement in early Jun. Discussed that regarding her aforementioned stone, she is still in need of a cystoscopy w/ left ureteroscopy, laser lithotripsy and left ureteral stent exchange. Surgeon: Hakeem Laurent Click Yes if Unassisted: Yes Anesthesia Type: General Operative Notes Findings: Moderate sized left nephrolith consistent w/ a stone from an infection (very soft, crumbles easily). Closure Type: not applicable Specimen(s): other (left kidney stone) Estimated Blood Loss (mL): 20 Blood products transfused: none Procedure in detail: Procedures: 1) Cystoscopy 2) Left retrograde ureteropyelogram 3) Left ureteroscopy, basket stone extraction 4) Left ureteral stent exchange 5) Intraoperative interpretation of fluoroscopic images, < 1 hour, all images saved to PACS Indication: Patient was identified in the preoperative holding area and consent confirmed. She was then brought to the operating room where general anesthesia was induced.? She was placed in the low lithotomy position. She was then prepped and draped in the usual sterile fashion. A surgical timeout was conducted and all were in agreement. ?Access to the bladder was obtained via a 30 degree cystoscope.? Complete cystoscopy was then performed and no concerning bladder masses or lesions were appreciated.? Bilateral ureteral orifices were easily identified and noted to be orthotopic in nature.? The previously placed left ureteral stent was easily visualized and externalized using the stent grasper.? A 0.035 sensor tip ureteral guidewire was advanced through the stent and into the left renal pelvis.? A 12/14Fr ureteral access sheath was then advanced over the ureteral guidewire and into the proximal left ureter.? The ureteral guidewire and inner obturator were then removed.? The flexible ureteroscope was then advanced through the ureteral access sheath and to the level of the left UPJ where a moderate sized stone consistent a/ a prior UTI was appreciated (matrix or struvite stone, soft, crumbles easily).? Complete pyeloscopy was then performed and no other stones were appreciated.? All stone fragments >1mm in greatest diameter were manually evacuated using the stone basket. A retrograde pyelogram was then performed which noted no filling defects concerning for residual stone.? The ureteral guidewire was then readvanced through the ureteroscope and into the left renal pelvis.? The ureter was then directly visualized upon removal of the ureteroscope and ureteral access sheath and noted to be stone free.? The cystoscope was then backloaded over the ureteral guidewire and advanced into the bladder.? A 6Fr multi-length JJ ureteral stent without strings was then advanced over the ureteral guidewire.? Upon removal of the guidewire, a good curl was noted within the left renal pelvis upon fluoroscopy and visually within the bladder.? The bladder was then drained and the cystoscope was removed.? Anesthesia was reversed, she was extubated in the OR and transferred to the PACU in stable condition for recovery. Complications: none Post-operative Condition: stable Disposition: PACU Plan for aftercare: Discharge home from PACU. Will return to Urology clinic in 3 months to review the results of her stone analysis and a RBUS that will be completed 8 weeks from now.
== END 2024-08-02 17:30 | disposition home or self-care (01) ==
PROVIDERS: Family Provider Internal Medicine; PCP Family Medicine; Referring Provider Urology; Visit Provider Urology
PROC: 0TF78ZZ Fragmentation in Left Ureter, Via Natural or Artificial Opening Endoscopic (ICD-10-PCS; CPT 52353; principal; 2024-08-02 13:45)
DX: N13.2 Hydronephrosis with renal and ureteral calculous obstruction (principal); Z87.891 Personal history of nicotine dependence
CPT/HCPCS: 52320; 52332; 74018; 74420; 76000; C2617; J0744; J1100; J2405; J2704; J3010; Q9967

== ENCOUNTER → 2024-08-06 08:33 | Outpatient (CLI) | payer MEDICARE, OTHER, SELFPAY ==
[2024-07-02 01:48] VITALS: PULSE 110; RESP 18; O2SAT 92
== END ==
PROVIDERS: Family Provider Internal Medicine; PCP Family Medicine; Visit Provider Urology
DX: N20.1 Calculus of ureter (principal)
CPT/HCPCS: 82365

== ENCOUNTER 2024-09-17 13:14 | Emergency (ER) | payer MEDICARE, OTHER, SELFPAY ==
[2024-07-02 01:48] VITALS: PULSE 110; RESP 18; O2SAT 92
[2024-09-17] VITALS (23 sets, daily range): BP systolic 149–238; BP diastolic 63–112; PULSE 57–63; RESP 15–28; TEMP 36.8; O2SAT 93–96; BMI 26.8
--- NOTE | 2024-09-17 13:32 | DI.RAD.S_ITS ---
PROCEDURE: XR CHEST 1V INDICATIONS: chest pain TECHNIQUE: One view of the chest was acquired. COMPARISON: Located Within [facility], CR, XR CHEST 1V, 07/01/2024, 23:19. FINDINGS: Surgical changes and devices: None. Lungs and pleura: Lungs are clear. Low lung volumes. No pleural effusions or pneumothorax. Mediastinum: Mediastinal contours appear normal. Heart size is prominent, stable. Bones and chest wall: No suspicious bony lesions. Overlying soft tissues appear unremarkable. IMPRESSION: No acute cardiopulmonary abnormality is seen. Dictated by: Juve Salinas M.D. on 09/17/2024 at 14:07 Approved by: Juve Salinas M.D. on 09/17/2024 at 14:08
--- NOTE | 2024-09-17 13:40 | EKG_ITS ---
[address] [address] Test Date: 2024-09-17 Pat Name: Krista Arce Department: Room: Gender: Female Complaint Operator: KOKI : 1955 Requested By: Order Number: [id number] Reading MD: Joao Almeida Measurements Intervals [place] Rate: 62 P: AL: 156 QRS: 10 QRSD: 120 T: -4 QT: 438 QTc: 444 Interpretive Statements Normal sinus rhythm Right bundle branch block Electronically Signed On 09-18-2024 17:39:48 PDT by Joao Almeida
[2024-09-17 14:05] LABS: Add Manual Diff / Slide Review NO; Basophils Absolute Auto 100 /uL (0-100); Basophils Percent Auto 0.9 % (0-2); Eosinophils Absolute Auto 200 /uL (0-450); Eosinophils Percent Auto 2.6 % (2-4); Hematocrit 37.9 % (36-46); Hemoglobin 12.9 g/dL (12.0-16.0); Lymphocytes Absolute Auto 1900 /uL (1100-4500); Mean Corpuscular HGB Conc 33.9 % (30-36); Mean Corpuscular Hemoglobin 29.7 PG (26-34); Mean Corpuscular Volume 87.6 fL (80-100); Monocytes Absolute Auto 800 /uL (0-900); Monocytes Percent Auto 8.9 % (3-14); Neutrophils Absolute Auto 5600 /uL (1500-7000); Neutrophils Percent Auto 65.6 % (50-75); Platelet Count 474 X10^3/uL (150-400); Red Blood Cell Count 4.33 X10^6/uL (4.0-5.2); Red Cell Distribution Width 15.1 % (11.6-14.8); White Blood Cell Count 8.6 X10^3/uL (4.5-11.0)
[2024-09-17 14:15] LABS: Prothrombin Time 10.9 SECONDS (9.4-12.5)
[2024-09-17 14:18] LABS: PTT Partial Thromboplastin Tim 33 SECONDS (25.1-36.5)
[2024-09-17 14:22] LABS: Alanine Aminotransferase 18 IU/L (<35); Albumin 4.6 g/dL (3.5-5.0); Albumin Globulin Ratio 1.3 (1.0-2.8); Alkaline Phosphatase 68 U/L (38-126); Aspartate Aminotransferase 26 IU/L (14-36); BUN Creatinine Ratio 19.3 (6-22); Bilirubin Total 1.2 mg/dL (0.2-1.3); Blood Urea Nitrogen 16 mg/dL (7-17); Calcium 9.7 mg/dL (8.4-10.2); Carbon Dioxide 25 mmol/L (22-32); Chloride 107 mmol/L (98-107); Creatine Kinase 61 U/L (30-135); Estimated Glomerular Filt Rate > 60 mL/min (>60); Globulin 3.6 g/dL (1.7-4.1); Glucose 108 mg/dL (70-99); HEMOLYSIS < 15 (0-50); Lipase 144 U/L (23-300); Magnesium 1.9 mg/dL (1.6-2.3); Potassium 3.8 mmol/L (3.4-5.1); Sodium 142 mmol/L (137-145); Total Protein 8.2 g/dL (6.3-8.2)
--- NOTE | 2024-09-17 14:27 | ED.GENADULT ---
HPI - General Adult General Chief complaint: Hypertension Stated complaint: High blood pressure 2 days Time Seen by Provider: 09/17/24 14:27 Source: patient Mode of arrival: Ambulatory History of Present Illness HPI narrative: 69-year-old female history of hypertension and septic shock back in June of this year presents today with increased tremor and ?? just not feeling right with elevated blood pressure that she rechecked twice at home. Patient denies headache dizziness blurred vision chest pain shortness of breath left leg swelling. Patient did take her losartan earlier today. She was just recently started on Inderal for her tremors initially 20 mg and now increased to 40 mg which has made her have difficulty sleeping. Other than what is stated 14 point review of system is negative. Related Data Home Medications Medication Instructions Recorded Confirmed Ranitidine Hydrochloride ##0 03/24/12 07/23/24 (RANITIDINE) ezetimibe 10 mg tablet 10 mg PO DAILY 07/01/24 08/02/24 losartan 100 mg tablet 100 mg PO DAILY 07/01/24 08/02/24 Previous Rx's Medication Instructions Recorded albuterol sulfate 90 mcg/actuation 0 INH Q4-6H #1 unit 03/24/12 aerosol inhaler (Proventil HFA) albuterol sulfate 1.25 mg/3 mL 1.25 mg (3 mL) inhalation QID PRN 05/13/18 solution for nebulization bronchospasm #90 mL ondansetron 4 mg disintegrating 4 mg PO Q8H PRN nausea and 07/19/24 tablet vomiting #20 tabs levofloxacin 500 mg tablet 500 mg PO DAILY #7 tabs 07/26/24 oxycodone 5 mg tablet 5 mg PO Q8H PRN pain (scale score 08/02/24 7-10) #10 tabs Allergies Allergy/AdvReac Type Severity Reaction Status Date / Time NKA Allergy Uncoded 07/23/24 14:21 Review of Systems Review of Systems ROS Unobtainable: All systems reviewed & are unremarkable except as noted in HPI and below Patient History Medical History (Updated 09/17/24 @ 16:42 by Bismark Guevara DO) Hx of benign essential tremor Hx of osteoporosis Hx of primary hypertension History of sarcoma History of asthma Surgical History (Updated 07/26/24 @ 10:29 by Francine Hathaway RN) S/P cystoscopy with ureteral stent placement (07/01/24) Hx of appendectomy Family History Father Coronary artery disease Mother Hypertension Social History marital status: household members: spouse Smoking Status: Never smoker alcohol intake: current caffeine: No Type(s) of exercise: walking frequency: decline to answer Smoking Status: Never smoker Exam Narrative Exam Narrative: GENERAL: [69] year old patient appears stated age. Well-developed patient, in mild distress. HEAD: Atraumatic. Normocephalic. EYES: Pupils equal round and reactive. Extraocular motions intact. No scleral icterus. No injection or drainage. NECK: Trachea midline. Non tender CARDIOVASCULAR: Regular rate and rhythm without murmurs, gallops, or rubs. RESPIRATORY: Clear to auscultation. Breath sounds equal bilaterally. No wheezes, rales, or rhonchi. GASTROINTESTINAL: Abdomen soft, non-tender, nondistended. EXTREMITIES: No edema or joint tenderness. BACK: Nontender without deformity or crepitance. No flank tenderness. NEURO: AOx3. SKIN: No rash or erythema of visible areas Initial Vital Signs Initial Vital Signs: Vital Signs Temperature 98.2 F 09/17/24 13:25 Pulse Rate 62 09/17/24 13:25 Respiratory Rate 18 09/17/24 13:25 Blood Pressure 231/112 H 09/17/24 13:25 Pulse Oximetry 96 09/17/24 13:25 Oxygen Delivery Method Room Air 09/17/24 13:25 Course Orders Ordered: ED Orders 09/17/24 13:32 XR chest 1V Stat EKG-12 Lead Stat 09/17/24 13:47 Complete Blood Count AUTO DIFF Stat Comprehensive Metabolic Panel Stat Lipase Stat Magnesium Stat NT-proBNP (BNP-Adult 18+) Stat PTT Partial Thromboplastin Abhinav Stat Prothrombin Time INR Stat Troponin & CK Cardiac Panel Stat Discontinued Medications Acetaminophen (Acetaminophen 325 Mg Tablet) 650 mg PO NOW ONE Stop: 09/17/24 15:11 Last Admin: 09/17/24 15:17 Dose: 650 mg Documented By: PAUL Hydralazine HCl (Hydralazine 20 Mg/Ml Vial) 10 mg IV NOW ONE Stop: 09/17/24 14:57 Last Admin: 09/17/24 15:04 Dose: 10 mg Documented By: PAUL Ondansetron HCl (Ondansetron 4 Mg/2 Ml Inj) 4 mg IV NOW ONE Stop: 09/17/24 15:12 Last Admin: 09/17/24 15:15 Dose: 4 mg Documented By: PAUL Vital Signs Vital signs: Vital Signs - 8 hr 09/17/24 13:25 09/17/24 13:39 09/17/24 13:40 Temperature 98.2 F Pulse Rate 62 63 63 Respiratory Rate 18 18 22 Blood Pressure 231/112 H Pulse Oximetry 96 95 96 Oxygen Delivery Method Room Air 09/17/24 13:40 09/17/24 14:00 09/17/24 14:30 Temperature Pulse Rate 60 58 L Respiratory Rate 22 25 H Blood Pressure 215/99 H Pulse Oximetry 94 94 Oxygen Delivery Method 09/17/24 14:37 09/17/24 14:37 09/17/24 14:48 Temperature Pulse Rate 57 L 61 Respiratory Rate 27 H 28 H Blood Pressure 201/88 H Pulse Oximetry 93 93 Oxygen Delivery Method 09/17/24 14:48 09/17/24 14:54 09/17/24 14:54 Temperature Pulse Rate 57 L Respiratory Rate 26 H Blood Pressure 238/101 H 193/87 H Pulse Oximetry 94 Oxygen Delivery Method 09/17/24 15:00 09/17/24 15:00 09/17/24 15:04 Temperature Pulse Rate 58 L 58 L Respiratory Rate 26 H Blood Pressure 210/94 H 210/94 H Pulse Oximetry 93 Oxygen Delivery Method 09/17/24 15:20 09/17/24 15:20 09/17/24 15:30 Temperature Pulse Rate 61 Respiratory Rate 26 H Blood Pressure 169/75 H 157/72 H Pulse Oximetry 95 Oxygen Delivery Method 09/17/24 15:30 09/17/24 15:40 09/17/24 15:40 Temperature Pulse Rate 60 63 Respiratory Rate 28 H 25 H Blood Pressure 153/70 H Pulse Oximetry 95 95 Oxygen Delivery Method 09/17/24 15:42 09/17/24 15:50 09/17/24 15:50 Temperature Pulse Rate 58 L 60 Respiratory Rate 21 Blood Pressure 150/70 H 150/69 H Pulse Oximetry 96 Oxygen Delivery Method Medical Decision Making Lab Data 09/17/24 13:47 04/29/25 13:47 Labs: Lab Results 09/17/24 Range/Units 13:47 WBC 8.6 (4.5-11.0) X10^3/uL RBC 4.33 (4.0-5.2) X10^6/uL Hgb 12.9 (12.0-16.0) g/dL Hct 37.9 (36-46) % MCV 87.6 (80-100) fL MCH 29.7 (26-34) PG MCHC 33.9 (30-36) % RDW 15.1 H (11.6-14.8) % Plt Count 474 H (150-400) X10^3/uL Neut % (Auto) 65.6 (50-75) % Lymph % (Auto) 22.0 L (25-40) % Hart[place] % (Auto) 8.9 (3-14) % Eos % (Auto) 2.6 (2-4) % Baso % (Auto) 0.9 (0-2) % Neut # (Auto) 5600 (5162-0348) /uL Lymph # (Auto) 1900 (6800-8935) /uL [place] # (Auto) 800 (0-900) /uL Eos # (Auto) 200 (0-450) /uL Baso # (Auto) 100 (0-100) /uL PT 10.9 (9.4-12.5) SECONDS INR 1.0 (0.9-1.3) APTT 33 (25.1-36.5) SECONDS Sodium 142 (137-145) mmol/L Potassium 3.8 (3.4-5.1) mmol/L Chloride 107 (98-107) mmol/L Carbon Dioxide 25 (22-32) mmol/L BUN 16 (7-17) mg/dL Creatinine 0.83 (0.52-1.04) mg/dL Estimated GFR > 60 (>60) mL/min BUN/Creatinine Ratio 19.3 (6-22) Glucose 108 H (70-99) mg/dL Calcium 9.7 (8.4-10.2) mg/dL Magnesium 1.9 (1.6-2.3) mg/dL Total Bilirubin 1.2 (0.2-1.3) mg/dL AST 26 (14-36) IU/L ALT 18 (<35) IU/L Alkaline Phosphatase 68 (38-126) U/L Total Creatine Kinase 61 (30-135) U/L Troponin I < 0.012 (0.01-0.034) ng/mL NT-Pro-B Natriuret Pep 1430 H (<125) pg/mL Total Protein 8.2 (6.3-8.2) g/dL Albumin 4.6 (3.5-5.0) g/dL Globulin 3.6 (1.7-4.1) g/dL Albumin/Globulin Ratio 1.3 (1.0-2.8) Lipase 144 (23-300) U/L ECG Data Interpretation: NSR RBBB HR [address] 156 QRS [address]-t wave change Unchanged from 07/01/24 MDM Narrative Medical decision making narrative: All lab work ,vital signs, nurse triage note, medication list, and all previous ER visits and imaging studies all reviewed. Patient given Tylenol hydralazine and Zofran here. Blood pressure on arrival initially was 230/101 now was 150/69 with a heart rate of 60. Patient feels much better on reexamination and is asymptomatic at this time. Differential diagnosis includes hypertensive urgency, emergency, renal impairment, electrolyte derangement. Patient will follow up with PCP this week for blood pressure recheck. Discharge Plan Departure Patient Disposition: Home Clinical Impression: Malignant hypertension Instructions: DI for High Blood Pressure Activity Restrictions/Additional Instructions: Return with new or worsening symptoms. Follow up with PCP in 1-2 weeks for blood pressure recheck. Prescriptions: No Action albuterol sulfate 1.25 mg/3 mL solution for nebulization 1.25 mg INHALATION QID PRN (Reason: bronchospasm) Qty: 90 1RF ezetimibe 10 mg tablet 10 mg PO DAILY losartan 100 mg tablet 100 mg PO DAILY Ranitidine Hydrochloride (RANITIDINE) Qty: 0 albuterol sulfate [Proventil HFA] 90 MCG/PUFF HFA aerosol inhaler 0 INH Q4-6H Qty: 1 0RF levofloxacin 500 mg tablet 500 mg PO DAILY Qty: 7 0RF oxycodone 5 mg tablet 5 mg PO Q8H PRN (Reason: pain (scale score 7-10)) Qty: 10 0RF ondansetron 4 mg tablet,disintegrating 4 mg PO Q8H PRN (Reason: nausea and vomiting) Qty: 20 0RF Referrals: Fernandez Perez MD [Primary Care Provider] - Stand Alone Forms: Patient Portal/API/Survey
--- NOTE | 2024-09-17 14:28 | EKG_ITS ---
[address] [address] Test Date: 2024-09-17 Pat Name: Krista Arce Department: Room: Gender: Female Livestock Yard Attendant: JYOTI : 1955 Requested By: Order Number: [id number] Reading MD: Joao Almeida Measurements Intervals [place] Rate: 57 P: -29 MI: QRS: 15 QRSD: 122 T: 3 QT: 428 QTc: 416 Interpretive Statements Atrial flutter Right bundle branch block Electronically Signed On 09-18-2024 17:39:48 PDT by Joao Almeida
[2024-09-17 14:33] LABS: NT-proBNP (BNP-Adult 18+) 1430 pg/mL (<125); Troponin I < 0.012 ng/mL (0.01-0.034)
[2024-09-17] MEDS: hydrALAZINE 20 MG/ML VIAL 10 MG IV (15:04)
[2024-09-17] MEDS: ONDANSETRON 4 MG/2 ML INJ IV (15:15)
[2024-09-17] MEDS: ACETAMINOPHEN 325 MG TABLET 650 MG PO (15:17)
== END 2024-09-17 17:18 | disposition home or self-care (01) ==
PROVIDERS: Emergency Provider Family Medicine; Family Provider Internal Medicine; PCP Family Medicine
DX: I10 Essential (primary) hypertension (principal)
CPT/HCPCS: 71045; 80053; 82550; 83690; 83735; 83880; 84484; 85025; 85610; 85730; 93005; 96374; 96375; 99284; J0360; J2405

== ENCOUNTER → 2024-09-23 10:52 | Outpatient (CLI) | payer MEDICARE, OTHER, SELFPAY ==
[2024-07-02 01:48] VITALS: PULSE 110; RESP 18; O2SAT 92
--- NOTE | 2024-09-23 10:53 | DI.US.S_ITS ---
PROCEDURE: US RENAL COMPLETE INDICATIONS: 69 y/o F s/p left ureteroscopy for stone, eval for hydro TECHNIQUE: Real-time scanning was performed of the kidneys and bladder, with image documentation. COMPARISON: [facility], MR, MR AB PANCREATIC/MRCP PROTOCOL, 07/12/2024, 14:17. [facility], CT, CT CHEST ABD PEL WO CON, 07/01/2024, 15:40. FINDINGS: Kidneys: Kidneys are normal in size. Right kidney measures 10 cm long; left kidney measures 12.6 cm long. Right renal cortical thickness is 1.1 cm; left renal cortical thickness is 0.4 cm. Renal cortical echotexture is normal. No hydronephrosis or nephrolithiasis. Simple right renal cyst measuring 1.9 x 1.5 x 1.5 cm. Bladder: Pre-void bladder volume is 47 mL. Post-void residual is 0.4 mL. Pre-void images demonstrate no intraluminal masses or stones. On pre-void images, bilateral ureteral jets are noted with color Doppler interrogation. (Of note, ureteral jets may not be detectable in up to 25% of cases due to insufficient differences in specific gravity between ureteral and bladder urine). Miscellaneous: No free pelvic fluid. IMPRESSION: No visualized hydronephrosis. Dictated by: Meenu Gordon M.D. on 09/23/2024 at 16:09 Approved by: Meenu Gordon M.D. on 09/23/2024 at 16:11
== END ==
PROVIDERS: Family Provider Internal Medicine; PCP Family Medicine; Referring Provider Urology; Visit Provider Urology
DX: N20.1 Calculus of ureter (principal); N28.1 Cyst of kidney, acquired
CPT/HCPCS: 76770

== ENCOUNTER 2024-11-12 09:00 | Outpatient (RCR) | payer MEDICARE, OTHER, SELFPAY ==
[2024-07-02 01:48] VITALS: PULSE 110; RESP 18; O2SAT 92
--- NOTE | 2024-10-30 14:16 | PT.OIE ---
Current Diagnoses Full incontinence of feces (10/30/24) Other abnormalities of gait and mobility (10/30/24) Unspecified urinary incontinence (10/30/24) Weakness (10/30/24) Past Medical History (Last Reviewed 10/23/24 @ 10:19 by Hakeem Laurent DO) History of asthma History of sarcoma Hx of benign essential tremor Hx of osteoporosis Hx of primary hypertension Past Surgical History (Last Reviewed 10/23/24 @ 10:19 by Hakeem Laurent DO) Hx of appendectomy S/P cystoscopy with ureteral stent placement (07/01/24) Visit Care Team Role Provider Type Fernandez Perez MD Family Provider Physician Primary Care Provider Specialty: Family Practice Address: [address] [place] [address], [address] Email: Jackie Salas PA-C Attending Provider Advanced Routing Clerk Referring Provider Specialty: Medical Address: [address] [place] [address], [address] Email: Physical Therapy Initial Evaluation PT-OP-A Visit Information Start: 10/30/24 08:09 Freq: Status: Active Protocol: Document 10/30/24 08:09 [facility] (Rec: 10/30/24 08:40 [facility] [id number]) Out-Patient Physical Therapy Visit Information Visit Information Visit Type Initial Evaluation Visit Start Time 08:15 Visit Stop Time 09:00 Visit Number 1 Evaluation Information Evaluation Date 10/30/24 PT-OP-B Current Condition Start: 10/30/24 08:09 Freq: Status: Active Protocol: Document 10/30/24 08:15 [facility] (Rec: 10/30/24 08:40 [facility] [id number]) Current Condition History of Current Condition Onset Date June 2024 Current Complaints full incontinence of feces, urinary incontinence, weakness History of Current Krista describes 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 She had multiple surgeries and skin grafting from the abdominal wall to repair the tissue around the tailbone and buttock. She also had intense radiation following . She is much weaker now on the left leg. 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 She did not experience symptoms of bowel or bladder dysfunction after her cancer surgeries. This May in 2024 She started feeling under the weather and then went into the ER Jun 23. She had gone into septic shock due to a stone in her ureter. She had a stent put in but her blood pressure dropped too low. She was intubated and air lifted to [place] and she was diagnosed with encephalopathy and became very weak. She reports the first time she got up out of the hospital bed she lost all bowel control. She had not experienced any fecal leakage prior to this. She also started having a essential tremor last year. Now she is unable to sense that she is going to have a bowel movement until she is ready to empty. She is currently wearing a depends and has to change it 1 time per day. SHe is trying to respond to the feeling to go and sometimes makes it to the bathroom. BM are typically 1-2 times per day. The bladder is the same thing. She wakes 1 time at night and she voids 3-4 times per day Other functional limitations include generalized weakness and not being about to get up from the floor, she has a 3 story house and its hard to go up down stairs, if she has to get on the floor it is really hard to get back up Treatment Goals Patient/Caregiver Treatment goals for Krista include decreasing urinary Goals and fecal leakage and improving overall strength PT-OP-I Pelvic Floor Start: 10/30/24 08:09 Freq: Status: Active Protocol: Document 10/30/24 13:36 [facility] (Rec: 10/30/24 13:38 [facility] [id number]) Pelvic Floor Assessment Urine Pelvic Floor Surgery Yes: sarcoma removal Urinary Symptoms Urge Sensation Leakage Size Large Other Leakage Causes walking to the toilet and strong urge to void Voiding Frequency every 3-4 hours Nocturia 1 Pelvic Clock Pelvic Clock 12-3 Atrophy Pelvic Clock 3-6 Atrophy Pelvic Clock 6-9 Atrophy Pelvic Clock 9-12 Atrophy Contraction Ability Voluntary Weak Contraction Voluntary Relaxation Weak Manual Muscle 2 Testing Left Manual Muscle 2 Testing Right Manual Muscle 2 Testing Anterior Manual Muscle 2 Testing Posterior Muscle Endurance ( 4 Seconds) Comments Pelvic Floor gluteal reconstructive surgery from her sarcoma cancer Comments does affect muscle tone of the levator ani however pt is able to contract on the left side. She tests weak for all walker but is able to contract all walker of the levator ani. Her endurance is very limited at 4 sec hold only PT-OP-M Strength Start: 10/30/24 08:09 Freq: Status: Active Protocol: Document 10/31/24 14:14 [facility] (Rec: 10/31/24 14:16 [facility] [id number]) Trunk Strength Trunk Manual Muscle Testing Core Stabilization Decreased strength of the transverse abdominal musculature and decreased ability to facilitate the TA Hip Strength Hip Manual Muscle Testing Left Flexion (L2) 3 Fair Extension (S1) 3 Fair Abduction 3 Fair External Rotation 3 Fair PT-OP-Q Treatments Start: 10/30/24 08:09 Freq: Status: Active Protocol: Document 10/30/24 13:33 [facility] (Rec: 10/30/24 13:34 [facility] [id number]) Therapeutic Exercises Supine Exercises hooklying hip abduction with theraband Reps/Minutes 2 x 10 reps level 3 TB supine adductor assist with pelvic floor contraction Reps/Minutes holding 5 seconds rest 10 x 10 reps Self-Care/Home Management Treatment Education Patient Education Home Exercise Program Other Education Krista was trained in the urge deference technique and was given a bladder diary to begin tracking her voids PT-OP-T Assessment and Plan Start: 10/30/24 08:09 Freq: Status: Active Protocol: Document 10/30/24 08:15 [facility] (Rec: 10/31/24 12:23 [facility] [id number]) Physical Therapy Assessment Rehab Potential Rehabilitation Good Potential Evaluation Complexity Number of Personal 3 or More Factors/ Comorbidities Number of Body 4 or More Systems Impaired Clinical Evolving Presentation at Evaluation Impairments Impairments Activity Tolerance,Functional Activities,Gait,Soft Tissue Mobility,Strength Other Impairments generalized weakness from being so sick with toxic shock and urinary and fecal incontinence Goals 3 Impairment Decreased pelvic floor endurance Short Term Goal (STG Krista is able to sustain a pelvic floor contraction in ) supine x 10 seconds STG Duration 5 weeks Assisted Goal (LTG) Krista is able to sustain a pelvic floor contraction in standing x 5 seconds or better LTG Duration 12 weeks 2 Impairment urinary and fecal urgency Short Term Goal (STG Krista is educated in the urge deference technique and ) bladder retraining to decrease urinary urgency STG Duration 4 weeks Assisted Goal (LTG) Krista reports a reduction in urinary and fecal urgency and frequency LTG Duration 12 weeks 1 Impairment urinary and fecal incontinence with Krista needing to wear depends for protection Maintenance Shop Technician Goal (LTG) Krista reports a overall reduction of urinary and fecal incontinence and is no longer needing to wear depends throughout the day LTG Duration 12 weeks Assessment Summary Assessment Krista is a 69 year old female referred to PT with chief complaints of urinary and fecal incontinence as well as generalized weakness after being hospitalized with toxic shock in June 2024. 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 She underwent multiple surgeries to remove the sarcoma and skin grafts to repair her left gluteals. 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 In May 2024 she became very sick with toxic shock syndrome, had surgery to remove a stone in her ureter and was airlifted to [facility] where she was intubated and treated for toxic shock syndrome and encephalopathy . Pt reports she feels that she almost did not make it and became very weak when she was recovering. It was during this time that when she was finally able to get out of bed she had full incontinence of feces. Krista reports at this time she is wearing depends for protection. She isn't aware that she needs to have a bowel movement until she gets a sudden urge. She feels she needs to be close to the bathroom and if she is close she can make it before having a accident. She describes urgency with voiding too and finds that she leaks once getting up from a seated position and while walking to the bathroom following a sudden urge to void . With pelvic floor exam today Krista tests 2/5 MMT for all walker of the levator ani. She lacks endurance to sustain a pelvic floor contraction more than 4 seconds in supine. Krista is weak throughout her core for lower abdominal strength. She notes it is hard for her to ascend/descend stairs, squat, and get back up from a hands and knee position with gardening. She needs further testing for LE strength and we will see her 2 times per week so that we can work with her on pelvic floor strength as well as general conditioning. Krista is a good candidate for PT Physical Therapy Plan Frequency and Duration Frequency of 2x/Week Treatment Duration of 12 treatment (weeks) Plan of Care Start 10/30/24 Date Plan of Care End 01/22/25 Date Therapeutic Interventions Therapeutic Home Exercise Program,Neuromuscular Re-education, Interventions Patient/Caregiver Education,Self-Care/Home Management, Therapeutic Exercises Modalities Biofeedback Next Visit Focus/Plan Next Note Type Treatment Note Next Visit Plan review pelvic floor exercises and begin assessment of LE strength and functional mobility
--- NOTE | 2024-11-07 12:10 | PT.OTN ---
Current Diagnoses Full incontinence of feces (11/07/24) Other abnormalities of gait and mobility (11/07/24) Unspecified urinary incontinence (11/07/24) Weakness (11/07/24) Physical Therapy Treatment Note PT-OP-A Visit Information Start: 10/30/24 08:09 Freq: Status: Active Protocol: Document 11/07/24 10:46 [facility]N (Rec: 11/07/24 12:09 LRN Laptop) Out-Patient Physical Therapy Visit Information Visit Information Visit Type Treatment Note Visit Start Time 10:46 Visit Stop Time 11:45 Visit Number 2 Evaluation Information Evaluation Date 10/30/24 PT-OP-B Current Condition Start: 10/30/24 08:09 Freq: Status: Active Protocol: Document 10/30/24 08:15 [facility] (Rec: 10/30/24 08:40 [facility] [id number]) Current Condition History of Current Condition Onset Date June 2024 Current Complaints full incontinence of feces, urinary incontinence, weakness History of Current Krista describes 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 She had multiple surgeries and skin grafting from the abdominal wall to repair the tissue around the tailbone and buttock. She also had intense radiation following . She is much weaker now on the left leg. 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 She did not experience symptoms of bowel or bladder dysfunction after her cancer surgeries. This May in 2024 She started feeling under the weather and then went into the ER Jun 23. She had gone into septic shock due to a stone in her ureter. She had a stent put in but her blood pressure dropped too low. She was intubated and air lifted to [place] and she was diagnosed with encephalopathy and became very weak. She reports the first time she got up out of the hospital bed she lost all bowel control. She had not experienced any fecal leakage prior to this. She also started having a essential tremor last year. Now she is unable to sense that she is going to have a bowel movement until she is ready to empty. She is currently wearing a depends and has to change it 1 time per day. SHe is trying to respond to the feeling to go and sometimes makes it to the bathroom. BM are typically 1-2 times per day. The bladder is the same thing. She wakes 1 time at night and she voids 3-4 times per day Other functional limitations include generalized weakness and not being about to get up from the floor, she has a 3 story house and its hard to go up down stairs, if she has to get on the floor it is really hard to get back up Treatment Goals Patient/Caregiver Treatment goals for Krista include decreasing urinary Goals and fecal leakage and improving overall strength PT-OP-C Subjective Start: 10/30/24 08:09 Freq: Status: Active Protocol: Document 11/07/24 10:46 LRN (Rec: 11/07/24 12:09 LRN Laptop) OP-PT Subjective Patient Comments Patient Comments States L PF is weak. States the urinary problem is not as bad. Able to control urge more. Leaks only with urge to pee. Still has problem with stool and that is because of her history of radiation to lower abdomen to the buttock, causing scarring in those areas leading to bowel problems. Leaking stool, type 4. Walking 3 days a week, BP normal is 140/80-90. C/O LBP since hospitalization. OP-PT Pain Assessment Location Low Back Pain Location Across LB standing on feet too long, Details Intensity 6 Scale Used Numeric (0 - 10) Description Sharp Description- Other Pain range: 4-6/10. Standing at kitchen too long Pain Aggravating Bending Factors PT-OP-I Pelvic Floor Start: 10/30/24 08:09 Freq: Status: Active Protocol: Document 10/30/24 13:36 [facility] (Rec: 10/30/24 13:38 [facility] [id number]) Pelvic Floor Assessment Urine Pelvic Floor Surgery Yes: sarcoma removal Urinary Symptoms Urge Sensation Leakage Size Large Other Leakage Causes walking to the toilet and strong urge to void Voiding Frequency every 3-4 hours Nocturia 1 Pelvic Clock Pelvic Clock 12-3 Atrophy Pelvic Clock 3-6 Atrophy Pelvic Clock 6-9 Atrophy Pelvic Clock 9-12 Atrophy Contraction Ability Voluntary Weak Contraction Voluntary Relaxation Weak Manual Muscle 2 Testing Left Manual Muscle 2 Testing Right Manual Muscle 2 Testing Anterior Manual Muscle 2 Testing Posterior Muscle Endurance ( 4 Seconds) Comments Pelvic Floor gluteal reconstructive surgery from her sarcoma cancer Comments does affect muscle tone of the levator ani however pt is able to contract on the left side. She tests weak for all walker but is able to contract all walker of the levator ani. Her endurance is very limited at 4 sec hold only PT-OP-M Strength Start: 10/30/24 08:09 Freq: Status: Active Protocol: Document 11/07/24 10:46 LRN (Rec: 11/07/24 12:09 LRN Laptop) Hip Strength Hip Manual Muscle Testing Right Abduction 5 Normal Adduction 5 Normal Internal Rotation 5 Normal Left Adduction 4+ Good+ Internal Rotation 3 Fair PT-OP-Q Treatments Start: 10/30/24 08:09 Freq: Status: Active Protocol: Document 11/07/24 10:46 LRN (Rec: 11/07/24 12:09 LRN Laptop) Therapeutic Exercises Supine Exercises SKTC Supine Exercise Name Semi-reclined Side bilateral Reps/Minutes 10 SH (3 breaths) x 6 Comments Cued no pain w/stretch. LBP relief noted with stretch hooklying hip abduction with theraband Supine Exercise Name Semi-reclined with pillow under hips Equipment Used Lev 3 TB Reps/Minutes 5SH x 5, 10 SH x 10 Comments Extra time to determine max ivy hold. supine adductor assist with pelvic floor contraction Supine Exercise Name Semi-reclined with pillow under hips Equipment Used Ball squeeze Reps/Minutes 5SH x 10 Comments Extra time to determine toleration of hold Sidelying Exercises Hip IR Sidelying Exercise Reverse Clamshell Name Side bilateral Resistance Manual resist x 1 Reps/Minutes 10x w/quick PF contraction; 2-3x w/long hold PF contraction Comments MMT taken, L weaker than R Hip AB/AD Side bilateral Resistance Manual resist Reps/Minutes 1-2x Comments MMT taken, L weaker than R, extra time for positioning R Clamshell Side bilateral Reps/Minutes 10x Quick & Long Hold x 3 L Clamshell Side left Reps/Minutes 10x Quick & Long Hold x 3 Self-Care/Home Management Treatment Education Other Education Discussed: -bladder diary, and adding BMs & bowel types to diary charting, -pt to do bladder/bowel diary adding bowel types. -discussed PT rehab focus: pt wants to focus on improving strength and function. -discussed freq of voiding good at every 2 hrs and 1-3x BMs depending on food intake (meals in a day), and BM types (3, 4 norm). -discussed walking for exercise and to monitor blood pressure before and after the first 1-2x to get norm, then to monitor as needed per fatigue symptoms. Discussed how to slowly increase walking distance (~10' at a time), and how to monitor for when not to increase distance with systemic changes (ex: BP, fatigue & hydration...). Discussed new c/o LBP w/prolonged standing and bending over. Activities Self-Care/Home Issued & reviewed HEP: PF contraction with Clamshell & Management Reverse Clamshell for Quick and Long hold contractions Activities . I/S pt in sit<>stands done with PF contraction, holding through entire transfer. PT-OP-T Assessment and Plan Start: 10/30/24 08:09 Freq: Status: Active Protocol: Document 11/07/24 10:46 LRN (Rec: 11/07/24 12:09 LRN Laptop) Physical Therapy Assessment Goals 3 Impairment Decreased pelvic floor endurance Short Term Goal (STG Krista is able to sustain a pelvic floor contraction in ) supine x 10 seconds STG Duration 5 weeks Belt Press Operator Goal (LTG) Krista is able to sustain a pelvic floor contraction in standing x 5 seconds or better LTG Duration 12 weeks 2 Impairment urinary and fecal urgency Short Term Goal (STG Krista is educated in the urge deference technique and ) bladder retraining to decrease urinary urgency STG Duration 4 weeks Belt Press Operator Goal (LTG) Krista reports a reduction in urinary and fecal urgency and frequency LTG Duration 12 weeks 1 Impairment urinary and fecal incontinence with Krista needing to wear depends for protection Retirement Goal (LTG) Krista reports a overall reduction of urinary and fecal incontinence and is no longer needing to wear depends throughout the day LTG Duration 12 weeks Assessment Summary Assessment Pt attends today reporting better able to control her urine with urge deference (delay) technique and voiding every 2 hrs with less leakage using delay technique. Pt did not track her BM's and pt is not aware of how often she is having a BM but thinks she is type 4; therefore requested pt do bowel/bladder diary one more time to determine if BM scheduling is needed. Pt was very receptive to PF strengthening ex's but doesn't tolerate full supine or sidelye lying well due to her encephalopathy. Deferred adding standing PF/hip AD strengthening due to lack of time. Physical Therapy Plan Frequency and Duration Frequency of 2x/Week Treatment Duration of 12 treatment (weeks) Plan of Care Start 10/30/24 Date Plan of Care End 01/22/25 Date Next Visit Focus/Plan Next Note Type Treatment Note Next Visit Plan PF strengthening with ex and functional activities. Review pelvic floor exercises (clam/reverse clam) and I /S ex of sit<>stand with PF contractions (issue HEP if needed). Assess LE (knee/ankle) strength and further functional mobility (standing, bending, reaching) and affect on LB.
--- NOTE | 2024-11-12 11:25 | PT.OTN ---
Current Diagnoses Full incontinence of feces (11/12/24) Other abnormalities of gait and mobility (11/12/24) Unspecified urinary incontinence (11/12/24) Weakness (11/12/24) Physical Therapy Treatment Note PT-OP-A Visit Information Start: 10/30/24 08:09 Freq: Status: Active Protocol: Document 11/12/24 09:01 [facility] (Rec: 11/12/24 11:24 [facility] [id number]) Out-Patient Physical Therapy Visit Information Visit Information Visit Type Treatment Note Visit Start Time 09:00 Visit Stop Time 09:40 Visit Number 3 Evaluation Information Evaluation Date 10/30/24 PT-OP-B Current Condition Start: 10/30/24 08:09 Freq: Status: Active Protocol: Document 10/30/24 08:15 [facility] (Rec: 10/30/24 08:40 [facility] [id number]) Current Condition History of Current Condition Onset Date June 2024 Current Complaints full incontinence of feces, urinary incontinence, weakness History of Current Krista describes 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 She had multiple surgeries and skin grafting from the abdominal wall to repair the tissue around the tailbone and buttock. She also had intense radiation following . She is much weaker now on the left leg. 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 She did not experience symptoms of bowel or bladder dysfunction after her cancer surgeries. This May in 2024 She started feeling under the weather and then went into the ER Jun 23. She had gone into septic shock due to a stone in her ureter. She had a stent put in but her blood pressure dropped too low. She was intubated and air lifted to [place] and she was diagnosed with encephalopathy and became very weak. She reports the first time she got up out of the hospital bed she lost all bowel control. She had not experienced any fecal leakage prior to this. She also started having a essential tremor last year. Now she is unable to sense that she is going to have a bowel movement until she is ready to empty. She is currently wearing a depends and has to change it 1 time per day. SHe is trying to respond to the feeling to go and sometimes makes it to the bathroom. BM are typically 1-2 times per day. The bladder is the same thing. She wakes 1 time at night and she voids 3-4 times per day Other functional limitations include generalized weakness and not being about to get up from the floor, she has a 3 story house and its hard to go up down stairs, if she has to get on the floor it is really hard to get back up Treatment Goals Patient/Caregiver Treatment goals for Krista include decreasing urinary Goals and fecal leakage and improving overall strength PT-OP-C Subjective Start: 10/30/24 08:09 Freq: Status: Active Protocol: Document 11/12/24 09:01 [facility] (Rec: 11/12/24 11:24 [facility] [id number]) OP-PT Subjective Patient Comments Patient Comments pt notes she is having a bad day today, she feels weak and dizzy Krista notes she did get spasms with the exercises with clam shells She is getting good control over her bladder PT-OP-I Pelvic Floor Start: 10/30/24 08:09 Freq: Status: Active Protocol: Document 10/30/24 13:36 [facility] (Rec: 10/30/24 13:38 [facility] [id number]) Pelvic Floor Assessment Urine Pelvic Floor Surgery Yes: sarcoma removal Urinary Symptoms Urge Sensation Leakage Size Large Other Leakage Causes walking to the toilet and strong urge to void Voiding Frequency every 3-4 hours Nocturia 1 Pelvic Clock Pelvic Clock 12-3 Atrophy Pelvic Clock 3-6 Atrophy Pelvic Clock 6-9 Atrophy Pelvic Clock 9-12 Atrophy Contraction Ability Voluntary Weak Contraction Voluntary Relaxation Weak Manual Muscle 2 Testing Left Manual Muscle 2 Testing Right Manual Muscle 2 Testing Anterior Manual Muscle 2 Testing Posterior Muscle Endurance ( 4 Seconds) Comments Pelvic Floor gluteal reconstructive surgery from her sarcoma cancer Comments does affect muscle tone of the levator ani however pt is able to contract on the left side. She tests weak for all walker but is able to contract all walker of the levator ani. Her endurance is very limited at 4 sec hold only PT-OP-M Strength Start: 10/30/24 08:09 Freq: Status: Active Protocol: Document 11/07/24 10:46 [facility]N (Rec: 11/07/24 12:09 LRN Laptop) Hip Strength Hip Manual Muscle Testing Right Abduction 5 Normal Adduction 5 Normal Internal Rotation 5 Normal Left Adduction 4+ Good+ Internal Rotation 3 Fair PT-OP-Q Treatments Start: 10/30/24 08:09 Freq: Status: Active Protocol: Document 11/12/24 09:01 [facility] (Rec: 11/12/24 11:24 [facility] [id number]) Therapeutic Exercises Supine Exercises piriformis stretch Reps/Minutes hold 1-2 min modified squat stretch Reps/Minutes hold 1-2 min hooklying hip abduction with theraband Equipment Used no resistance today Reps/Minutes 2 x 10 reps of ROM only supine adductor assist with pelvic floor contraction Equipment Used ball squeeze Reps/Minutes 10 reps holding 5 sec and resting 10 sec Sitting Exercises sit-stand with pelvic floor contraction Reps/Minutes pt trained to engage her pelvic floor prior to standing Self-Care/Home Management Treatment Education Patient Education Home Exercise Program,Pain Management Other Education discussed urge deference technique, sit-stand with pelvic floor engagement pt given handouts for HEP for helping to stretch her pelvic floor and low back PT-OP-T Assessment and Plan Start: 10/30/24 08:09 Freq: Status: Active Protocol: Document 11/12/24 09:01 [facility] (Rec: 11/12/24 11:24 [facility] [id number]) Physical Therapy Assessment Assessment Summary Assessment Krista was fatigued today and feeling overall like her body was fatigued and was experiencing some dizziness. She reports she does have days like this at times since having the staff infection. She was shown stretches for her low back today as she was feeling tight and sore and it was harder for her to contract her pelvic floor. I did add in sit to stand with pelvic floor engagement today. Krista feels she has a better control now for her bladder but is still experiencing the fecal leakage and urgency. We will start EMG biofeedback next week for pelvic floor endurance training Physical Therapy Plan Frequency and Duration Frequency of 2x/Week Treatment Duration of 12 treatment (weeks) Plan of Care Start 10/30/24 Date Plan of Care End 01/22/25 Date Next Visit Focus/Plan Next Note Type Treatment Note Next Visit Plan Assess LE knee and ankle strength next visit and start progressing her HEP, EMG biofeedback for endurance training
--- NOTE | 2024-12-11 08:44 | PT.OPDS ---
Current Diagnoses Full incontinence of feces (11/12/24) Other abnormalities of gait and mobility (11/12/24) Unspecified urinary incontinence (11/12/24) Weakness (11/12/24) Visit Care Team Role Provider Type Fernandez Perez MD Family Provider Physician Primary Care Provider Specialty: Family Practice Address: [address] [place] [address], [id number] Email: Jackie Salas PA-C Attending Provider Advanced Double End Sewer Referring Provider Specialty: Medical Address: [address] [place] [address], [id number] Email: Visit Number Visit Number 3 Discharge Summary PT-OP-B Current Condition Start: 10/30/24 08:09 Freq: Status: Active Protocol: Document 10/30/24 08:15 [facility] (Rec: 10/30/24 08:40 [facility] [id number]) Current Condition History of Current Condition Onset Date June 2024 Current Complaints full incontinence of feces, urinary incontinence, weakness History of Current Krista describes 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 She had multiple surgeries and skin grafting from the abdominal wall to repair the tissue around the tailbone and buttock. She also had intense radiation following . She is much weaker now on the left leg. 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 She did not experience symptoms of bowel or bladder dysfunction after her cancer surgeries. This May in 2024 She started feeling under the weather and then went into the ER Jun 23. She had gone into septic shock due to a stone in her ureter. She had a stent put in but her blood pressure dropped too low. She was intubated and air lifted to [place] and she was diagnosed with encephalopathy and became very weak. She reports the first time she got up out of the hospital bed she lost all bowel control. She had not experienced any fecal leakage prior to this. She also started having a essential tremor last year. Now she is unable to sense that she is going to have a bowel movement until she is ready to empty. She is currently wearing a depends and has to change it 1 time per day. SHe is trying to respond to the feeling to go and sometimes makes it to the bathroom. BM are typically 1-2 times per day. The bladder is the same thing. She wakes 1 time at night and she voids 3-4 times per day Other functional limitations include generalized weakness and not being about to get up from the floor, she has a 3 story house and its hard to go up down stairs, if she has to get on the floor it is really hard to get back up Treatment Goals Patient/Caregiver Treatment goals for Krista include decreasing urinary Goals and fecal leakage and improving overall strength PT-OP-C Subjective Start: 10/30/24 08:09 Freq: Status: Active Protocol: Document 11/12/24 09:01 [facility] (Rec: 11/12/24 11:24 [facility] [id number]) OP-PT Subjective Patient Comments Patient Comments pt notes she is having a bad day today, she feels weak and dizzy Krista notes she did get spasms with the exercises with clam shells She is getting good control over her bladder PT-OP-I Pelvic Floor Start: 10/30/24 08:09 Freq: Status: Active Protocol: Document 10/30/24 13:36 [facility] (Rec: 10/30/24 13:38 [facility] [id number]) Pelvic Floor Assessment Urine Pelvic Floor Surgery Yes: sarcoma removal Urinary Symptoms Urge Sensation Leakage Size Large Other Leakage Causes walking to the toilet and strong urge to void Voiding Frequency every 3-4 hours Nocturia 1 Pelvic Clock Pelvic Clock 12-3 Atrophy Pelvic Clock 3-6 Atrophy Pelvic Clock 6-9 Atrophy Pelvic Clock 9-12 Atrophy Contraction Ability Voluntary Weak Contraction Voluntary Relaxation Weak Manual Muscle 2 Testing Left Manual Muscle 2 Testing Right Manual Muscle 2 Testing Anterior Manual Muscle 2 Testing Posterior Muscle Endurance ( 4 Seconds) Comments Pelvic Floor gluteal reconstructive surgery from her sarcoma cancer Comments does affect muscle tone of the levator ani however pt is able to contract on the left side. She tests weak for all walker but is able to contract all walker of the levator ani. Her endurance is very limited at 4 sec hold only PT-OP-M Strength Start: 10/30/24 08:09 Freq: Status: Active Protocol: Document 11/07/24 10:46 [facility] (Rec: 11/07/24 12:09 [facility] Laptop) Hip Strength Hip Manual Muscle Testing Right Abduction 5 Normal Adduction 5 Normal Internal Rotation 5 Normal Left Adduction 4+ Good+ Internal Rotation 3 Fair PT-OP-T Assessment and Plan Start: 10/30/24 08:09 Freq: Status: Active Protocol: Document 12/11/24 08:41 [facility] (Rec: 12/11/24 08:44 [facility] [id number]) Physical Therapy Assessment Goals 3 Impairment Decreased pelvic floor endurance Short Term Goal (STG Krista is able to sustain a pelvic floor contraction in ) supine x 10 seconds good progress and Krista has been given a HEP STG Duration 5 weeks Tank Refinisher Goal (LTG) Krista is able to sustain a pelvic floor contraction in standing x 5 seconds or better LTG Duration 12 weeks 2 Impairment urinary and fecal urgency Short Term Goal (STG Krista is educated in the urge deference technique and ) bladder retraining to decrease urinary urgency pt notes good improvement on being better able to control urinary urgency. She is still experiencing the fecal urgency STG Duration 4 weeks Nursing Home Goal (LTG) Krista reports a reduction in urinary and fecal urgency and frequency LTG Duration 12 weeks 1 Impairment urinary and fecal incontinence with Krista needing to wear depends for protection Nursing Home Goal (LTG) Krista reports a overall reduction of urinary and fecal incontinence and is no longer needing to wear depends throughout the day Krista reports overall progress with urinary urgency but has not experienced progress with symptoms of fecal urgency LTG Duration 12 weeks Assessment Summary Assessment Krista has not been seen since 11/12/24 and at the time of her last visit she was dealing with fatigue and dizzyness. She report she would like to DC PT at this time and is doing better with controlling urinary urgency. She is still having the fecal incontinence symptoms that began after her radiation. She will be discharged at this time to a I HEP Physical Therapy Plan Discharge Physical Therapy Discharge Reasons Patient Request Discharge Comments DC PT to a I HEP
== END 2024-12-11 13:16 | disposition home or self-care (01) ==
LOC: PHYS 09:00
PROVIDERS: Family Provider Family Medicine; PCP Family Medicine; Referring Provider Physician Assistant; Visit Provider Physician Assistant
DX: R32 Unspecified urinary incontinence (principal); R15.9 Full incontinence of feces; R53.1 Weakness; R26.89 Other abnormalities of gait and mobility
CPT/HCPCS: 97110; 97163; 97535